=== PATIENT | male | born 1960 | race Hispanic/Latino ===

== ENCOUNTER 2018-06-17 09:11 | Inpatient (IN) | payer BC ==
[2018-06-17] VITALS (7 sets, daily range): BP systolic 152–185; BP diastolic 76–94
[~2018-06-17] VITALS: Ht 165.1 cm; Wt 83.0 kg
[2018-06-17] MEDS ORDERED: METOPROLOL TARTRATE INJ 1 MG/ML VIAL IV ONE (09:15)
[2018-06-17] MEDS ORDERED: ASPIRIN 325 MG TAB PO ONE (09:15)
[2018-06-17 09:59] LABS: BASOPHILS % 0.1 % (0.0-1.0); LYMPHOCYTES # (AUTO) 1.4 (1.0-3.2); LYMPHOCYTES % 15.6 % (18.0-39.1); MONOCYTES # (AUTO) 0.4 (0.2-0.8); MONOCYTES % 4.4 % (4.4-11.3); NEUTROPHILS % 79.3 % (38.7-80.0); PLATELET COUNT 210 x10e3/uL (140-360); RED CELL DISTRIBUTION WIDTH 14.7 % (11.7-14.4)
[2018-06-17 10:02] LABS: HEMATOCRIT 12.6 % (38.2-49.6); HEMOGLOBIN 3.9 g/dL (14.0-18.0)
[2018-06-17] MEDS ORDERED: SODIUM CHLORIDE 0.9% 250ML 250 ML IV ONE (10:15)
[2018-06-17 10:16] LABS: ALBUMIN 2.1 g/dL (3.5-5.0); ALBUMIN/GLOBULIN RATIO 0.8 (0.8-2.0); ANION GAP 15.3 mmol/L (8-16); CALCIUM 7.6 mg/dL (8.4-10.2); CREATININE, SERUM 4.34 mg/dL (0.72-1.25); POTASSIUM 4.3 mmol/L (3.5-5.1)
[2018-06-17 10:22] LABS: INR 1.28
[2018-06-17 10:23] LABS: PARTIAL THROMBOPLASTIN TIME 25.2 seconds (23.8-35.5)
--- NOTE | 2018-06-17 10:24 | Diagnostic Imaging Report ---
PROCEDURE: A single AP view of the chest. COMPARISON: None. INDICATIONS: CHEST PAIN, SHORTNESS OF BREATH FINDINGS: Lines/tubes: None. Lungs: The lungs are well inflated and clear. There is no evidence of pneumonia or pulmonary edema. Pleura: There is no pleural effusion or pneumothorax. Heart and mediastinum: The heart and the mediastinum are unremarkable. Bones: No acute bony abnormality. IMPRESSION: No acute cardiopulmonary disease. Dictated by: MANUEL DSOUZA M.D. on 06/17/2018 at 10:30 Electronically approved by: MANUEL DSOUZA M.D. on 06/17/2018 at 10:30
[2018-06-17 10:55] LABS: FERRITIN 30.53 ng/mL (21.81-274.66); THYROID STIMULATING HORMONE 3.903 uIU/mL (0.350-4.940)
[2018-06-17 11:01] LABS: FOLATE 3.8 ng/mL (7.0-15.4)
[2018-06-17] MEDS ORDERED: FUROSEMIDE INJ 10 MG/ML 4 ML VIAL IV ONE (11:30)
[2018-06-17] MEDS ORDERED: SODIUM CHLORIDE FLUSH 10 ML SYR INJ PRN (11:45)
[2018-06-17] MEDS ORDERED: METOPROLOL TARTRATE INJ 1 MG/ML VIAL IV PRN (12:30)
[2018-06-17 12:58] LABS: CLARITY,URINE CLEAR (CLEAR); COLOR,URINE YELLOW (YELLOW); LEUKOCYTE ESTERASE ,URINE NEGATIVE (NEGATIVE); NITRITE,URINE NEGATIVE (NEGATIVE); PROTEIN,URINE DIPSTICK 3+ (NEGATIVE)
[2018-06-17 12:59] LABS: BILIRUBIN,URINE NEGATIVE (NEGATIVE); KETONES,URINE NEGATIVE (NEGATIVE); URINE UROBILINOGEN 0.2 mg/dL (0.2 - 1)
[2018-06-17 13:06] LABS: AMORPHOUS SEDIMENT,URINE FEW (FEW); BACTERIA,URINE FEW /HPF; EPITHELIAL CELLS,URINE RARE /LPF; WBC,URINE (MAN) 0-5 /HPF (0-5)
[2018-06-17] MEDS ORDERED: DEXTROSE 50% SYRINGE 50 ML IV PRN (14:15)
[2018-06-17] MEDS: CLONIDINE HCL 0.1 MG TAB PO PRN ×2 (14:22→19:10)
[2018-06-17] MEDS: METOPROLOL TARTRATE 50 MG TAB PO SCH (15:23)
[2018-06-17] MEDS: INSULIN REGULAR, HUMAN 100 UNIT/1 ML 3ML VIAL SQ SCH ×2 (15:37→21:00)
[2018-06-17] MEDS: HYDRALAZINE HCL 20 MG/ML VIAL IV PRN (15:37)
--- NOTE | 2018-06-17 15:40 | History and Physical ---
Mr. Hernández is a 58-year-old man with history of diabetes, hypertension, hyperlipidemia, came to the emergency room complaining of 2 weeks' history of chest pain, shortness of breath, palpitations, and feeling very tired. While in emergency, he was found to have renal failure and he was really anemic, so patient was admitted to the hospital. PAST MEDICAL HISTORY: Diabetes, hypertension, hyperlipidemia. SOCIAL HISTORY: He does not smoke and he does not drink. SURGICAL HISTORY: Had right knee surgery. ALLERGIES: NO KNOWN DRUG ALLERGIES. PHYSICAL EXAMINATION GENERAL: Today he is awake and alert. VITAL SIGNS: Temperature is 98.4, blood pressure is 188/97. HEART: Regular rate, 80 per minute. LUNGS: Clear to auscultation. ABDOMEN: Distended and soft. EXTREMITIES: Lower extremities no edema. BLOOD WORK: White count 8.77, hemoglobin 3.9, hematocrit 12.6, MCV is normal. Potassium is 4.3, creatinine is 4.34, glucose is 128. CK-MB is 14, CK 310, troponin is negative. TSH is normal. Urine has 6-10 cells. Chest x-ray shows no acute cardiopulmonary disease. ASSESSMENTS 1. Chest pain and shortness of breath, rule out coronary artery disease. 2. Acute renal failure. 3. Severe anemia. 4. Uncontrolled hypertension. 5. Diabetes type 2. 6. Paroxysmal atrial fibrillation. PLAN: At the present time is to admit the patient to the hospital, cardiology consult with Dr. Edwards, nephrology consult. He is going to be on ADA diet, sliding scale with insulin, clonidine p.r.n. for blood pressure. He received already 1 unit of blood. He is going to receive another unit of blood. We want to get a Hemoccult. All this was discussed with patient. All questions were answered to satisfaction. We will reconcile his home medications when we have them available. Job#: [id number] RADHA
[2018-06-17] MEDS ORDERED: SODIUM CHLORIDE 0.9% 1000ML 1,000 ML IV SCH (16:00)
--- NOTE | 2018-06-17 16:13 | Consultation ---
DATE OF CONSULTATION: NO DICTATION, LENGTH 0:1 Job#: [id number] RI
[2018-06-17] MEDS ORDERED: SODIUM CHLORIDE 0.9% 250ML 250 ML ONE (16:27)
[2018-06-17 16:40] LABS: CREATININE,URINE RANDOM 53.59 mg/dL (63-166)
[2018-06-17 16:41] LABS: TOTAL PROTEIN, URINE 206.2 mg/dL (1-14)
--- NOTE | 2018-06-17 17:33 | Consultation ---
DATE OF CONSULTATION: June 17, 2018 REASON FOR CONSULTATION: ROSY. HPI: Mr. Hernández is a 58-year-old man with a history of hypertension and diabetes, who has been admitted to [facility] due to shortness of breath with exertion, weakness and fatigue that has progressively been worsening for the past few days. He states he has never been to see a mud analysis supervisor, and has never been told he has kidney disease. As per our records, the last time he had a creatinine check was February of last year when he was admitted here for a hernia at which point his creatinine was 1.9 mg/dL. Upon presentation and today, he is found to have a hemoglobin of 3.9 mg/dL and a BUN of 99 with a creatinine of 4.3 and bicarb of 13. The last time he had labs was over a year ago when he was admitted here. Since then, he has not seen a doctor. He is not sure of his diabetes or his blood pressure has been well controlled. He states that after getting the blood, his shortness of breath and chest discomfort have improved considerably. He denies blood in his urine, blood in his stool, coughing up blood, or vomiting blood. REVIEW OF SYSTEMS: He denies fevers, chills, cough, nausea, vomiting, diarrhea, hematuria, hemoptysis, dysuria, hematochezia, hematemesis. PAST MEDICAL HISTORY: Diabetes, hypertension. PAST SURGICAL HISTORY: None. FAMILY HISTORY: No renal disease. SOCIAL HISTORY: No alcohol, tobacco or illicit drug use. ALLERGIES: NO KNOWN DRUG ALLERGIES. PHYSICAL EXAMINATION GENERAL: He is lying comfortably in bed. No acute distress. VITAL SIGNS: Temperature 98.4, heart rate 88, respiratory rate 18, blood pressure 188/97, and O2 sat is 100%. HEENT: NCAT. EOMI. NECK: Supple. JVP not appreciated. LUNGS: Clear to auscultation bilaterally. No rhonchi or rales. HEART: Regular rate and rhythm. S1 and S2 normal. ABDOMEN: Soft, nontender and nondistended. EXTREMITIES: No edema. Intact pulses. SKIN: No rash. No lesions. NEURO: Cranial nerves II-XII are grossly intact. MUSCULOSKELETAL: Normal to inspection. LABS: Reviewed in the electronic medical record. Significant for a BUN of 99, creatinine 4.3, bicarb 13. Urinalysis shows 2+ leukocyte esterase, 6-10 rbcs and greater than 50 wbcs with many bacteria, and 3+ protein. Hemoglobin 3.9 mg/dL with a hematocrit of 12.6 mg/dL. IMAGING: Chest x-ray performed on presentation showed no acute cardiopulmonary disease. ASSESSMENT AND PLAN 1. Anemia: Unsure if this is anemia of chronic kidney disease or acute blood loss anemia: I suspect this is more in the setting of chronic kidney disease since he presented essentially asymptomatic with a hemoglobin of 3.9 mg/dL. Has been adequately repleted, and now hemoglobin is 11. Iron saturation is 10% with a ferritin of 30. 2. Nonoliguric acute kidney injury on chronic kidney disease: Suspect he has baseline chronic kidney disease since creatinine is 1.9 from February of last year. However, still a significant jump within a year. Will check a renal ultrasound and a urine culture. Since the urinalysis showed 3+ protein, will check a urine protein to creatinine ratio as well. Suspect a component of ischemic acute tubular necrosis in the setting of such low blood counts. Will start on intravenous fluids. Has been repleted appropriately with blood as well. 3. Metabolic acidosis: Will start sodium bicarb. 4. Hyperphosphatemia: Will check a phos level with a.m. labs. Thank you for allowing me to participate in the care of Mr. Hernández. I will continue to follow closely. Job#: [id number] SC
[2018-06-17] MEDS: SODIUM BICARBONATE 650 MG TAB PO SCH (21:15)
[2018-06-17 21:53] LABS: CREATINE KINASE MB 11.2 ng/mL (0-5.0)
[2018-06-18] VITALS (7 sets, daily range): BP systolic 153–169; BP diastolic 71–81
[2018-06-18] MEDS: MORPHINE SULFATE 2 MG/ML SYR IV PRN ×2 (02:14→21:38)
[2018-06-18 05:22] LABS: BASOPHILS % 0.3 % (0.0-1.0); EOSINOPHILS # (AUTO) 0.1 (0.0-0.4); EOSINOPHILS % 1.8 % (0.0-6.0); LYMPHOCYTES # (AUTO) 2.3 (1.0-3.2); LYMPHOCYTES % 29.2 % (18.0-39.1); MEAN CORPUSCULAR HEMOGLOBIN 26.3 pg (28-32); MEAN CORPUSCULAR HGB CONC 32.7 g/dL (31-35); MEAN CORPUSCULAR VOLUME 80.5 fL (81-99); MONOCYTES # (AUTO) 0.6 (0.2-0.8); NEUTROPHILS # (AUTO) 4.6 (2.1-6.9); PLATELET COUNT 195 x10e3/uL (140-360); RED BLOOD COUNT 2.05 x10e6/uL (4.3-5.7); RED CELL DISTRIBUTION WIDTH 15.2 % (11.7-14.4)
[2018-06-18 05:40] LABS: ALBUMIN/GLOBULIN RATIO 0.8 (0.8-2.0); ANION GAP 14.1 mmol/L (8-16); CALCIUM 7.7 mg/dL (8.4-10.2); CHOL/HDL RATIO 6.2 (3.9-4.7); CREATININE, SERUM 4.47 mg/dL (0.72-1.25); POTASSIUM 4.1 mmol/L (3.5-5.1)
[2018-06-18 05:46] LABS: CREATINE KINASE MB 9.3 ng/mL (0-5.0)
[2018-06-18 05:54] LABS: HEMATOCRIT 16.5 % (38.2-49.6)
[2018-06-18 05:55] LABS: HEMOGLOBIN 5.4 g/dL (14.0-18.0)
[2018-06-18 06:10] LABS: MAGNESIUM 1.3 MG/DL (1.3-2.1); PHOSPHORUS 4.2 MG/DL (2.3-4.7)
[2018-06-18] MEDS ORDERED: SODIUM CHLORIDE 0.9% 250ML 250 ML IV ONE (07:00)
[2018-06-18] MEDS: CLONIDINE HCL 0.1 MG TAB PO PRN (08:06)
[2018-06-18] MEDS: SODIUM BICARBONATE 650 MG TAB PO SCH ×3 (08:06→21:18)
[2018-06-18] MEDS: METOPROLOL TARTRATE 50 MG TAB PO SCH ×2 (08:07→16:29)
--- NOTE | 2018-06-18 08:09 | Progress Note ---
DATE: June 18, 2018 Mr. Hernández is a 58-year-old man with a history of diabetes, hypertension, hyperlipidemia, who came to the emergency room complaining of a 2-week history of chest pain, shortness of breath, palpitations, and feeling tired. Apparently, last year his creatinine was 1.9. When he came to the emergency room, creatinine was like 4.3. The patient was admitted to the hospital for further workup. He was found also to be very anemic. He received 2 units of blood. He is still very anemic. PHYSICAL EXAMINATION GENERAL: He is awake and alert. VITALS: Temperature is 97.2, blood pressure 153/73. HEART: Irregularly irregular. LUNGS: Clear to auscultation. ABDOMEN: Soft. BLOOD WORK: Potassium 4.1, creatinine is 4.47, glucose 106. White count is 7.83, hemoglobin 5.4, hematocrit 16.5, and platelets 195,000. TSH was normal. Chest x-ray with no acute findings. We are awaiting for the kidney ultrasound. ASSESSMENT AND PLAN 1. Chest pain and shortness of breath probably due to severe anemia, renal failure. Rule out coronary artery disease. 2. Pkwhq-ez-tggicri renal failure. 3. Severe anemia probably due to renal failure. 4. Uncontrolled hypertension. 5. Diabetes, type 2. 6. Atrial fibrillation. 7. Metabolic acidosis. 8. Hyperphosphatemia. PLAN: At this time, he is on IV fluids. We are waiting for the kidney ultrasound. He was started on sodium bicarb. He is on metoprolol and clonidine for high blood pressure. He is on an ADA diet and sliding scale with insulin. We are going to continue to monitor creatinine, as well as hemoglobin and hematocrit. Cardiology and nephrology are following the patient with me. All of this was discussed with the patient. All questions were answered to satisfaction. Job#: [id number] BRITTNEE
[2018-06-18] MEDS: INSULIN REGULAR, HUMAN 100 UNIT/1 ML 3ML VIAL SQ SCH ×4 (08:12→21:18)
[2018-06-18] MEDS: HYDRALAZINE HCL 20 MG/ML VIAL IV PRN (13:09)
--- NOTE | 2018-06-18 15:28 | Diagnostic Imaging Report ---
PROCEDURE:US RETROPERITONEAL ( KIDNEY ). COMPARISON:None. INDICATIONS:ROSY TECHNIQUE: Maldonado-scale and color sonographic images of the bilateral kidneys and bladder where obtained in transverse and longitudinal planes. FINDINGS: RIGHT KIDNEY: 8.1 cm, cortex 1.4 cm Cysts: None Solid masses: None Stones: None Hydronephrosis: None Echogenicity: Increased LEFT KIDNEY: 10.7 cm, cortex 1.7 cm Cysts: None Solid masses: None Stones: None Hydronephrosis: None Echogenicity: Increased Bladder: Unremarkable Prostate: The prostate gland is normal in size, measuring 2.7 x 2.2 x 2.5 cm (14.8 mL). CONCLUSION: Increased renal parenchymal echogenicity, consistent with renal parenchymal dysfunction. No hydronephrosis, stones, or solid renal mass. Dictated by: Darrius Melendrez M.D. on 06/18/2018 at 15:34 Electronically approved by: Darrius Melendrez M.D. on 06/18/2018 at 15:34
--- NOTE | 2018-06-18 15:57 | Progress Note ---
DATE: June 18, 2018 REASON FOR CONSULTATION: ROSY on CKD. HPI: Mr. Hernández is a 58-year-old man with a history of diabetes and hypertension, admitted with acute blood loss anemia and metabolic acidosis. OBJECTIVE: No acute events overnight. SUBJECTIVE VITAL SIGNS: Temperature 96.6, heart rate 61, respiratory rate 20, blood pressure 169/81. LUNGS: Clear to auscultation bilaterally. No wheezing or rales. HEART: Regular rhythm. EXTREMITIES: No edema. LABS: Reviewed on electronic medical record. Significant for a bicarb of 13 and creatinine of 4.4. ASSESSMENT AND PLAN 1. Nonoliguric acute kidney injury versus chronic kidney disease stage 5. Electrolytes and volume status reviewed, is acidotic and just started on bicarb yesterday. No urgent indication for dialysis unless acidosis does not respond to oral medication. Will continue to monitor closely. 2. Ultrasound pending. 3. Metabolic acidosis. Will increase sodium bicarbonate. 4. Acute blood loss anemia. Another 2 units of blood given today. 5. Question whether GI needs to be involved considering he continues to drop his hemoglobin despite replacement. Will order a stool occult blood. Job#: [id number] JELLY
[2018-06-18] MEDS ORDERED: NIFEDIPINE CR 30 MG TAB PO SCH (21:00)
[2018-06-19] VITALS (8 sets, daily range): BP systolic 124–167; BP diastolic 71–100
[2018-06-19 04:36] LABS: BASOPHILS % 0.3 % (0.0-1.0); EOSINOPHILS # (AUTO) 0.3 (0.0-0.4); EOSINOPHILS % 3.9 % (0.0-6.0); HEMATOCRIT 22.1 % (38.2-49.6); HEMOGLOBIN 7.2 g/dL (14.0-18.0); LYMPHOCYTES # (AUTO) 2.1 (1.0-3.2); LYMPHOCYTES % 28.2 % (18.0-39.1); MEAN CORPUSCULAR HEMOGLOBIN 26.8 pg (28-32); MEAN CORPUSCULAR HGB CONC 32.6 g/dL (31-35); MEAN CORPUSCULAR VOLUME 82.2 fL (81-99); MONOCYTES # (AUTO) 0.7 (0.2-0.8); MONOCYTES % 8.7 % (4.4-11.3); NEUTROPHILS # (AUTO) 4.3 (2.1-6.9); NEUTROPHILS % 57.2 % (38.7-80.0); PLATELET COUNT 201 x10e3/uL (140-360); RED BLOOD COUNT 2.69 x10e6/uL (4.3-5.7); RED CELL DISTRIBUTION WIDTH 15.6 % (11.7-14.4)
[2018-06-19 04:59] LABS: ANION GAP 12.3 mmol/L (8-16); CALCIUM 7.8 mg/dL (8.4-10.2); CREATININE, SERUM 4.34 mg/dL (0.72-1.25); MAGNESIUM 1.4 MG/DL (1.3-2.1); PHOSPHORUS 4.4 MG/DL (2.3-4.7); POTASSIUM 4.3 mmol/L (3.5-5.1)
[2018-06-19] MEDS: INSULIN REGULAR, HUMAN 100 UNIT/1 ML 3ML VIAL SQ SCH ×4 (07:30→20:32)
--- NOTE | 2018-06-19 08:18 | Progress Note ---
DATE: June 19, 2018 Mr. Hernández is a 58-year-old man with a history of diabetes, hypertension, hyperlipidemia, who came to the emergency room complaining of 2-week history of feeling tired, chest pain and shortness of breath. Last year his creatinine was 1.9. When he came here, it was 4.3. He also was found to be very anemic and received already 4 units of blood. PHYSICAL EXAMINATION GENERAL: Today, he is awake and alert. He is feeling good. VITALS: Temperature is 96.4, blood pressure 124/71. HEART: Regular rate. LUNGS: Poor inspiratory effort. ABDOMEN: Soft. BLOOD WORK: Potassium 4.3, creatinine 4.34, glucose is 97. White count 7.45, hemoglobin 7.2, hematocrit 22.1. Chest x-ray was normal. Had an ultrasound done yesterday that shows increased renal parenchymal echogenicity consistent with renal parenchymal dysfunction. ASSESSMENT 1. Chest pain and shortness of breath probably due to anemia. 2. Paroxysmal atrial fibrillation. 3. Ndsiw-db-[id number] renal failure. 4. Severe anemia. 5. Uncontrolled hypertension. 6. Diabetes, type 2. 7. Metabolic acidosis. 8. Hyperphosphatemia. PLAN: At the present time, continue sodium bicarbonate, ADA diet and sliding scale with insulin. Transfuse as needed. The pig breeder seems to think that this anemia may also be due to blood loss. We are going to get a GI consult with Dr. Lara. Continue to monitor hemoglobin and creatinine. Continue hypertension medications. All of this was discussed with the patient. All questions were answered to satisfaction. Job#: [id number] BRITTNEE
[2018-06-19] MEDS: SODIUM BICARBONATE 650 MG TAB PO SCH ×3 (08:40→20:31)
[2018-06-19] MEDS: METOPROLOL TARTRATE 50 MG TAB PO SCH (08:40)
[2018-06-19] MEDS: EPOETIN ALFA 10000 UNIT/ML VIAL SC SCH (15:31)
[2018-06-19] MEDS ORDERED: SENNA-S TABLET PO SCH (16:30)
[2018-06-19] MEDS ORDERED: METOPROLOL TARTRATE 50 MG TAB PO SCH (17:00)
[2018-06-19] MEDS ORDERED: METOPROLOL TARTRATE 25 MG TAB PO SCH (17:00)
--- NOTE | 2018-06-19 17:26 | Progress Note ---
DATE: June 19, 2018 INTERNAL MEDICINE CONSULTATION REASON FOR CONSULTATION: CKD stage 5. SUBJECTIVE: Patient is feeling considerably better although complaining of constipation today. OBJECTIVE GENERAL: Lying comfortably in bed, no acute distress. VITAL SIGNS: Temperature 96.8, heart rate 52, respiratory rate 20, blood pressure 141/72. LUNGS: Clear to auscultation bilaterally. No wheezing, no rales. HEART: Regular rhythm. EXTREMITIES: No edema. LABS: Reviewed in the electronic medical record. Significant for a creatinine of 4.3, BUN of 90, bicarb of 16. ASSESSMENT AND PLAN 1. Nonoliguric acute kidney injury on chronic kidney disease versus chronic kidney disease stage 5. His right kidney is 8 cm in size, and left kidney is 10 cm. I suspect this is all chronic renal disease and he is heading towards dialysis soon. This was explained to the patient. However, currently he is asymptomatic and does not require emergent dialysis. Acidosis will be controlled with oral medication. 2. Metabolic acidosis. Continue sodium bicarb 1950 mg t.i.d. Bicarb level improving. 3. Anemia of chronic kidney disease. Continue Epogen. 4. Accelerated hypertension. Starting to develop bradycardia. Heart rates in the 50s on metoprolol and nifedipine. Has not been started on the metoprolol yet, and heart rate is already in the 50s. Will hold the metoprolol and increase the nifedipine. INCOMPLETE REPORT Job#: [id number] EV
[2018-06-19] MEDS: METOPROLOL TARTRATE 25 MG TAB PO SCH (17:27)
[2018-06-19] MEDS: NIFEDIPINE CR 30 MG TAB PO SCH (20:30)
[2018-06-19] MEDS: DOCUSATE SODIUM 100 MG CAP PO SCH (20:59)
[2018-06-19] MEDS: POLYETHYLENE GLYCOL 3350 17 GM PACK PO SCH (21:00)
--- NOTE | 2018-06-19 21:32 | Consultation ---
DATE OF CONSULTATION: June 19, 2018 GI CONSULT NOTE CONSULTING PHYSICIAN: Nancy Blackman MD REASON FOR CONSULT: Anemia, unspecified. HISTORY OF PRESENTING ILLNESS: A 58-year-old male who presented in the emergency room day before yesterday with profound weakness, shortness of breath on minimal exertion, palpitations, and off and on chest pain. No associated fever or chills. Blood work revealed profound anemia with hemoglobin of 3.9, MCV 84. He was also found to have renal failure with creatinine of 4.34. Baseline creatinine is not known. Patient got admitted with working diagnosis of asymptomatic anemia with acute renal failure. He has received 4 units of packed red blood cells with which hemoglobin has come up to 7.2. Iron profile showed a ferritin of 30.53, iron saturation low to 10, TIBC 307 (normal). Stool has not been collected yet. He reports no constipation at home, however, he has not had any bowel movement for 2 days. Reports no history of dark stool. Never had any episode of GI bleeding. No prior history of any peptic ulcer disease. No chronic liver disorder. Never had any upper endoscopy or colonoscopy. He is not on any blood thinner. Does not take any NSAIDs. GI is being consulted for further evaluation and recommendation of acute anemia. REVIEW OF SYSTEMS: Twelve-point system reviewed, symptomatology is limited to GI system. PAST MEDICAL HISTORY: Diabetes, hypertension, hyperlipidemia. PAST SURGICAL HISTORY: Right knee surgery. SOCIAL HISTORY: No smoking, alcohol, or any illicit drug use. FAMILY HISTORY: Negative for any GI or APPELLATE COURT CLERK malignancies. ALLERGIES: NO KNOWN DRUG ALLERGIES. HOME MEDICATIONS: None. INPATIENT MEDICATION LIST: Reviewed JAN. PHYSICAL EXAMINATION: VITAL SIGNS: Temperature 97.2, pulse 60, respiration 20, blood pressure 154/77, oxygen saturation 98% on room air. GENERAL: Not in any acute distress. HEENT: Oral mucosa is moist. Anicteric sclerae. CVS: S1 and S2 regular with a 2/6 flow murmur at the apex. LUNGS: Bilaterally grossly clear. ABDOMEN: Obese, protuberant belly, nondistended, nontender. No palpable mass or hernia. Positive bowel sounds. EXTREMITIES: Warm. Trace bilateral leg edema. LABS: Sodium 140, potassium 4.1, chloride 117, bicarb 13, BUN 100, creatinine 4.34 (same as on admission). AST 12, ALT 16, alkaline phosphatase 48, total bilirubin 0.2. WBC 8.77; hemoglobin 3.9, this has climbed to 7.2; hematocrit 12.6; platelet count 210,000. Urinalysis revealed 1+ blood, leukocyte esterase negative, RBCs 6 to 10, WBCs 0 to 5, nitrite negative. Renal ultrasound, increased renal parenchymal echogenicity consistent with renal parenchymal dysfunction. No hydronephrosis, stones, or solid renal mass. IMPRESSION: 1. Symptomatic normocytic anemia. 2. Acute renal failure. PLAN: From GI standpoint, I do not suspect any GI source of blood loss at this time. Will have to check the stool to ensure that if there is any occult blood present. Peripheral cell count is not consistent with microcytosis or hypochromia. Iron profile is also not suggestive of iron deficiency. However, patient can have a mixed picture. Will put him on bowel regimen for constipation. Check stool for occult blood. At least will keep him n.p.o. past midnight. EGD in the morning by my associate either Dr. Lara or Dr. Burkett. Recommend hematology consult to rule out multiple myeloma or any myelodysplastic syndrome. Patient is already being followed by nephrology service. I thank Dr. Blackman for allowing me to participate in the care of this patient. Job#: [id number] DR TOVAR
[2018-06-19] MEDS: MORPHINE SULFATE 2 MG/ML SYR IV PRN (23:47)
[2018-06-20] VITALS (8 sets, daily range): BP systolic 124–167; BP diastolic 63–80
[2018-06-20 05:06] LABS: BASOPHILS % 0.4 % (0.0-1.0); EOSINOPHILS # (AUTO) 0.3 (0.0-0.4); EOSINOPHILS % 4.1 % (0.0-6.0); HEMATOCRIT 22.2 % (38.2-49.6); HEMOGLOBIN 7.2 g/dL (14.0-18.0); LYMPHOCYTES # (AUTO) 2.2 (1.0-3.2); LYMPHOCYTES % 30.1 % (18.0-39.1); MEAN CORPUSCULAR HEMOGLOBIN 26.9 pg (28-32); MEAN CORPUSCULAR HGB CONC 32.4 g/dL (31-35); MEAN CORPUSCULAR VOLUME 82.8 fL (81-99); MONOCYTES # (AUTO) 0.8 (0.2-0.8); MONOCYTES % 10.5 % (4.4-11.3); NEUTROPHILS # (AUTO) 3.9 (2.1-6.9); NEUTROPHILS % 53.4 % (38.7-80.0); PLATELET COUNT 221 x10e3/uL (140-360); RED BLOOD COUNT 2.68 x10e6/uL (4.3-5.7); RED CELL DISTRIBUTION WIDTH 15.7 % (11.7-14.4)
[2018-06-20 05:22] LABS: ANION GAP 12.8 mmol/L (8-16); CALCIUM 7.7 mg/dL (8.4-10.2); CREATININE, SERUM 3.82 mg/dL (0.72-1.25); MAGNESIUM 1.6 MG/DL (1.3-2.1); PHOSPHORUS 5.4 MG/DL (2.3-4.7); POTASSIUM 4.8 mmol/L (3.5-5.1)
[2018-06-20] MEDS: INSULIN REGULAR, HUMAN 100 UNIT/1 ML 3ML VIAL SQ SCH ×4 (07:30→21:00)
[2018-06-20] MEDS: METOPROLOL TARTRATE 25 MG TAB PO SCH ×2 (09:00→17:14)
[2018-06-20] MEDS: DOCUSATE SODIUM 100 MG CAP PO SCH ×2 (09:00→17:00)
[2018-06-20] MEDS: SODIUM BICARBONATE 650 MG TAB PO SCH ×3 (09:00→21:23)
[2018-06-20] MEDS: POLYETHYLENE GLYCOL 3350 17 GM PACK PO SCH (09:00)
--- NOTE | 2018-06-20 09:27 | Progress Note ---
DATE: June 20, 2018 Mr. Hernández is a 58-year-old man with history of diabetes, hypertension, hyperlipidemia, who came to the emergency room because he was feeling tired. He had chest pain and shortness of breath. He was found to be very anemic as well as he had an elevated creatinine. PHYSICAL EXAMINATION GENERAL: Today, he is awake and alert. VITALS: Temperature is 96.2, blood pressure 127/63. HEART: Regular rate. LUNGS: Clear to auscultation. ABDOMEN: Soft. BLOOD WORK: Potassium 4.8, creatinine 3.82, and glucose 105. White count 7.31, hemoglobin 7.2, and hematocrit 22.2. ASSESSMENT 1. Chest pain and shortness of breath, probably due to anemia. 2. Paroxysmal atrial fibrillation. 3. Ubwtw-ca-ldcxfzw renal failure. 4. Severe anemia. 5. Uncontrolled hypertension. 6. Diabetes type 2. 7. Metabolic acidosis. 8. Hyperphosphatemia. PLAN: At the present time, to continue ADA diet and sliding scale with insulin. He was started on sodium bicarbonate. He was seen by GI and he is going to go for an EGD today. Apparently, stool guaiac came back also positive for blood loss. Spoke with Dr. Lundy yesterday that suggested the patient is so anemic and the renal failure that we need to rule out any type of malignancy like multiple myeloma; so, we consulted Dr. Batista for this. Continue all medications. All this was discussed with the patient. All questions were answered to satisfaction. Job#: [id number]
[2018-06-20] MEDS: LINEZOLID 600 MG/D5W 300ML 300 ML IV SCH (12:49)
--- NOTE | 2018-06-20 13:09 | Consultation ---
DATE OF CONSULTATION: ADDENDUM TO CONSULTATION I was asked to see him because he had redness and swelling of his right leg. The patient is telling me he had fallen on his right leg a week ago. The patient had trauma with redness and swelling. Now there are redness and swelling. There is induration. IMPRESSION: Trauma to the leg with redness and swelling, concern about infection. Will get an x-ray. Because he has chronic kidney disease and grew MRSA, will put him on Zyvox for now. Will reassess after the x-ray. Job#: [id number]
--- NOTE | 2018-06-20 13:22 | Consultation ---
DATE OF CONSULTATION: INFECTIOUS DISEASE CONSULTATION REASON FOR CONSULTATION: To rule out infection. HISTORY OF PRESENT ILLNESS: This patient, who is a pleasant 58-year-old male, history of diabetes mellitus, hypertension, hyperlipidemia, comes into the emergency room with chest pain, shortness of breath, palpitations, feeling really bad. The patient comes in. He was admitted on June 17, 2018. The patient has history of diabetes, hypertension and hyperlipidemia, comes in, was found to have acute renal failure, severe anemia, possible atrial fibrillation. He was seen by Renal. He was seen by Cardiology. The patient was found to have metabolic acidosis. He was also seen by GI. His creatinine on admission was 4.3. Hemoglobin was 7.2, and there was concern if he has multiple myeloma. Patient had a wound on his leg, and he is growing Staphylococcus aureus which was MSSA but was resistant to clindamycin and resistant to erythromycin. Patient is currently on morphine, nifedipine and insulin. REVIEW OF SYSTEMS: HEENT: Negative. PULMONARY: Negative. CARDIAC: Negative. : Negative. SKIN: There is no other rash. PHYSICAL EXAMINATION: GENERAL: He is currently alert, oriented. Does not seem to be in acute distress. VITALS: Stable. Currently afebrile. HEENT: Normocephalic, does not appear icteric. NECK: Supple. CHEST: Clear bilaterally. HEART: S1, S2. No S3 or S4. No murmur. ABDOMEN: Soft. Bowel sounds present. No tenderness. EXTREMITIES: No edema. SKIN: No rash. JOINTS: No erythema or edema. LAB: White count 7.31, hemoglobin 7.2, platelet 231. Creatinine 3.82. IMPRESSION: 1. Chest pain. 2. Anemia. 3. Chronic kidney disease, probably acute kidney injury. 4. Methicillin-resistant Staphylococcus aureus on the culture from wound. I would recommend to continue with local care. Job#: [id number] EV
[2018-06-20] MEDS ORDERED: MIDAZOLAM HCL 2 MG/2 ML VIAL ONE (14:26)
[2018-06-20] MEDS ORDERED: KETAMINE HCL INJ 50 MG/ML 10 ML VIAL ONE (14:26)
[2018-06-20] MEDS ORDERED: FENTANYL CITRATE/PF 100MCG/2 ML INJ ONE (14:26)
[2018-06-20] MEDS ORDERED: EPINEPHRINE HCL INJ 1 MG/ML AMP ONE (15:56)
[2018-06-20] MEDS: PANTOPRAZOLE 40 MG 10ML VIAL IV SCH (17:12)
[2018-06-20] MEDS: SUCRALFATE 1 GM TAB PO SCH ×2 (17:12→21:23)
[2018-06-20] MEDS ORDERED: PROPOFOL IV EMULSION 10 MG/ML 20 ML VIAL ONE (17:35)
[2018-06-20] MEDS ORDERED: DIATRIZOATE MEGL/DIATRIZOA SOD 30 ML BTL PO ONE (17:53)
--- NOTE | 2018-06-20 18:15 | Progress Note ---
DATE: June 20, 2018 REASON FOR CONSULTATION: Chronic kidney disease stage 5. SUBJECTIVE: Underwent EGD today and found to have a gastric ulcer. OBJECTIVE GENERAL: Lying comfortably in bed, no acute distress. VITAL SIGNS: Temperature 96.7, heart rate 52, respiratory rate 19, blood pressure 153/72. O2 sat 98% on room air. LUNGS: Clear to auscultation bilaterally. No wheezing, no rales. HEART: Regular rhythm. EXTREMITIES: No edema. LABS: Reviewed in the electronic medical record. Significant for a BUN of 84, creatinine 3.8. Bicarb of 19. ASSESSMENT AND PLAN 1. Chronic kidney disease stage 5. Electrolytes and volume status reviewed. No urgent indication to start on dialysis just yet. 2. Metabolic acidosis on sodium bicarbonate. 3. Hypertension. Continue nifedipine and metoprolol. 4. Gastric ulcer. Would be judicious with Carafate as it can cause aluminium toxicity in end-stage renal disease. Will monitor closely. Job#: [id number] GUY
[2018-06-20 18:22] LABS: HIV 1&2 AB SCREEN NON-REACTIVE (NONREACTIVE)
--- NOTE | 2018-06-20 18:45 | Consultation ---
DATE OF CONSULTATION: June 20, 2018 CONSULTATION TO: Nancy Blackman MD Mr. Hernández is a 58-year-old male who presented with weakness, shortness of breath, and dizziness. Subsequently, he was found to have a hemoglobin of 3.9 grams with normal indices. He was seen by com writer. Stool for occult blood was done which was reported positive. The patient subsequently was transfused to 7.2 grams. SOCIAL HISTORY: Noncontributory. FAMILY HISTORY: Noncontributory. ALLERGIES: REPORTED NONE. MEDICATIONS: At this time consist of: 1. Linezolid. 2. Clonidine. 3. Docusate. 4. Erythropoietin. 5. Hydralazine. 6. Metoprolol. 7. Nifedipine. 8. Protonix. 9. MiraLAX. 10. Regular insulin. 11. Senna. 12. Sodium bicarbonate. 13. Carafate. REVIEW OF SYSTEMS HEENT: Normal. CARDIAC: Hypertension, hyperlipidemia. RESPIRATORY: Normal. GI: Stool for occult blood positive. : Chronic renal failure. MUSCULOSKELETAL: Essentially normal. NEUROENDOCRINE: History of diabetes mellitus. PHYSICAL EXAMINATION GENERAL: Moderately built male, very anemic. Underlying left axillary adenopathy, 2 cm. HEART: Within normal limits. LUNGS: Clear. ABDOMEN: Obese. There is no hepatosplenomegaly. RECTAL: Exam deferred. CENTRAL NERVOUS SYSTEM: Essentially normal. EXTREMITIES: Essentially normal. LABORATORY DATA: 06/17/2018: Hemoglobin of 3.9, hematocrit 12.6, white count 8700, platelets 210,000, MCV 84, MCHC 31, RDW 14.7, neutrophils predominate 79.3%, lymphocytes 15.6%, 4.4% monocytes. The patient has been transfused to 7.2 grams today. Chemistry shows a sodium of 140, potassium 4.3, chloride 116, CO2 13 , BUN 99, creatinine 4.34, glucose 128, calcium low at 7.6. Bilirubin 0.2, SGOT 14, SGPT 17, alkaline phosphatase 47. CK is high at 310, CK-MB is reported high at 14. Total protein is very low at 4.8. Albumin low at 2.1. Globulins 2.7. Folic acid reported at 3.8. TSH 3.9. B12 is reported at 219. Microbiology from the right foot reveals Staph aureus. IMAGING: Renal ultrasound shows renal disease. Chest x-ray reported as essentially normal. IMPRESSION 1. Anemia of chronic disease. 2. Hypertension. 3. Diabetes mellitus, insulin dependent. 4. Hyperlipidemia. 5. Chronic renal failure. 6. Hypoproteinemia. 7. Hypoalbuminemia. 8. Hypocalcemia. 9. Stool for occult blood positive. 10. Wound culture, right leg, Staphylococcus aureus. 11. High creatine kinase, rule out rhabdomyolysis. 12. Bone marrow defect with anemia of chronic disease. 13. Left axillary lymph node, possible lymphoma. 14. Folic acid deficiency. 15. Low normal B12. PLAN, COMMENTS AND SUGGESTIONS: TSH is normal. Four causes of anemia are chronic disease, chronic renal failure, hypothyroidism, rheumatoid arthritis and an underlying malignancy. Underlying malignancy is very possible. I will suggest a left axillary lymph node biopsy and a bone marrow biopsy. EGD and colonoscopy become a must, as the patient has stool for occult blood positivity. CAT scan of the abdomen and pelvis as well as CAT scan of the chest without contrast as the patient has lymphadenopathy. Procrit and iron. HIV testing. Folic acid and B12 supplements. Job#: [id number] cc:MD CHRISTAL BELLO MD
[2018-06-20] MEDS ORDERED: LIDOCAINE HCL 10 MG/ML VIAL INJ ONE (19:45)
--- NOTE | 2018-06-20 20:08 | Diagnostic Imaging Report ---
RIGHT TIBIA/FIBULA X-RAY - 3 VIEWS HISTORY: \S\trauma \S\[id number] \S\1949 COMPARISON: None available. FINDINGS: Bones: Linear lucency within the proximal lateral tibial plateau. Additionally there is a linear lucency with surrounding sclerosis in the proximal tibial diaphysis. Osseous alignment is within normal limits. Joints: Advanced tricompartmental degenerative changes with associated diffuse osteophytosis and chondroid loose bodies in the posterior knee soft tissues. Chondrocalcinosis of the medial compartment. Soft tissues: The soft tissues appear unremarkable. IMPRESSION: Linear lucency of the proximal lateral right tibial plateau due to nondisplaced fracture, which may be acute/subacute on top of the chronic fracture as noted in the proximal tibial diaphysis. Recommend orthopedic consultation. Advanced tricompartmental degenerative changes of the right knee. Signed by: Dr. Sarah Hanson M.D. on 06/20/2018 8:04 PM
--- NOTE | 2018-06-20 20:59 | Diagnostic Imaging Report ---
EXAM: CT Chest, Abdomen and Pelvis WITHOUT contrast INDICATION: \S\anemia \[id number] \S\194 COMPARISON: Chest radiograph 02/27/2017 TECHNIQUE: Chest, abdomen and pelvis were scanned utilizing a multidetector helical scanner from the lung apex to the pubic symphysis without administration of IV contrast. Coronal and sagittal reformations were obtained. Routine protocol was performed. IV CONTRAST: None. ORAL CONTRAST: Gastrografin RADIATION DOSE: Total DLP: 822.4 mGy*cm Estimated effective dose: (DLP x 0.015 x size factor) mSv COMPLICATIONS: None FINDINGS: LINES and TUBES: None. LUNGS AND AIRWAYS: The lungs are unremarkable. Airways are normal. PLEURA: The pleural spaces are clear. HEART AND MEDIASTINUM: The thyroid gland is normal. Few prominent at the 1.2 cm and 7 of them partially calcified mediastinal lymph nodes, for example in the right lower paratracheal region on series 2, image 18. Additional few small calcified lymph nodes in the right hilar. This may reflect sequela of prior granulomatous disease. The heart is normal in size. Extensive coronary artery calcifications. There is no pericardial effusion. The thoracic aorta is normal in caliber and without significant calcifications. The main pulmonary artery is minimally enlarged measuring 3.1 cm in diameter. Moderate calcifications of the aortic valve and mild calcifications of the mitral annulus. Hyperdense interventricular septum with low attenuation of the blood pool consistent with anemia. HEPATOBILIARY: No focal hepatic lesions. No biliary ductal dilation. GALLBLADDER: No radio-opaque stones or sludge. No wall thickening. SPLEEN: No splenomegaly. PANCREAS: No focal masses or ductal dilatation. ADRENALS: No adrenal nodules KIDNEYS/URETERS: No hydronephrosis. No cystic or solid mass lesions. No stones. GI TRACT: Mild diffuse wall thickening of the stomach may be overestimated by poor distention. No abnormal distention, wall thickening, or evidence of bowel obstruction. Scattered diverticulosis throughout the sigmoid colon without diverticulitis. 2 cm round soft tissue density within the ascending colon at the hepatic flexure, better seen on coronal image 42. Appendix is normal. PELVIC ORGANS/BLADDER: Prostate calcifications. The urinary bladder appears unremarkable. LYMPH NODES: No lymphadenopathy. VESSELS: The abdominal aorta and pelvic arteries are normal in caliber and associated with mild scattered atherosclerotic calcifications. PERITONEUM / RETROPERITONEUM: No free air or fluid. BONES: Partially visualized surgical screws in the right humeral head. Mild to moderate multilevel degenerative changes of the lumbar spine, worse at L4-L5. SOFT TISSUES: Unremarkable. IMPRESSION: 1. Indeterminate 2 cm round soft tissue density within the ascending colon at the hepatic flexure. Recommend further evaluation with colonoscopy. 2. Diffuse wall thickening of the stomach may be overestimated by poor distention. The common GI consultation. 3. Diverticulosis of the sigmoid colon without diverticulitis. Signed by: Dr. Sarah Hanson M.D. on 06/20/2018 8:56 PM
[2018-06-20] MEDS: NIFEDIPINE CR 30 MG TAB PO SCH (21:23)
[2018-06-21] VITALS (8 sets, daily range): BP systolic 143–175; BP diastolic 76–99
[2018-06-21] MEDS: LINEZOLID 600 MG/D5W 300ML 300 ML IV SCH ×2 (00:50→16:28)
[2018-06-21] MEDS: HYDRALAZINE HCL 20 MG/ML VIAL IV PRN (01:25)
[2018-06-21 04:42] LABS: BASOPHILS % 0.4 % (0.0-1.0); EOSINOPHILS # (AUTO) 0.3 (0.0-0.4); EOSINOPHILS % 4.2 % (0.0-6.0); HEMATOCRIT 21.6 % (38.2-49.6); LYMPHOCYTES # (AUTO) 2.5 (1.0-3.2); LYMPHOCYTES % 31.6 % (18.0-39.1); MEAN CORPUSCULAR HEMOGLOBIN 26.7 pg (28-32); MEAN CORPUSCULAR HGB CONC 31.5 g/dL (31-35); MEAN CORPUSCULAR VOLUME 84.7 fL (81-99); MONOCYTES # (AUTO) 0.7 (0.2-0.8); MONOCYTES % 9.1 % (4.4-11.3); NEUTROPHILS # (AUTO) 4.2 (2.1-6.9); NEUTROPHILS % 53.8 % (38.7-80.0); PLATELET COUNT 251 x10e3/uL (140-360); RED BLOOD COUNT 2.55 x10e6/uL (4.3-5.7); RED CELL DISTRIBUTION WIDTH 15.9 % (11.7-14.4)
[2018-06-21 05:10] LABS: ANION GAP 9.7 mmol/L (8-16); CALCIUM 7.7 mg/dL (8.4-10.2); CREATININE, SERUM 3.52 mg/dL (0.72-1.25); MAGNESIUM 1.6 MG/DL (1.3-2.1); PHOSPHORUS 4.4 MG/DL (2.3-4.7); POTASSIUM 4.7 mmol/L (3.5-5.1)
[2018-06-21 05:21] LABS: HEMOGLOBIN 6.8 g/dL (14.0-18.0)
[2018-06-21] MEDS ORDERED: LIDOCAINE 1% 5ML-MPF INJ ONE (06:00)
[2018-06-21] MEDS ORDERED: LIDOCAINE HCL 10 MG/ML VIAL INJ ONE (06:00)
[2018-06-21] MEDS ORDERED: SODIUM CHLORIDE 0.9% 250ML 250 ML IV ONE (06:15)
[2018-06-21] MEDS ORDERED: FUROSEMIDE INJ 10 MG/ML 4 ML VIAL IV ONE (07:15)
[2018-06-21] MEDS: INSULIN REGULAR, HUMAN 100 UNIT/1 ML 3ML VIAL SQ SCH ×4 (07:30→21:33)
--- NOTE | 2018-06-21 08:20 | Diagnostic Imaging Report ---
Exam: Right tibia/fibulaCT without contrast. History: Trauma. Pain. Fracture. Comparison:None Technique: Utilizing a 64-slice multidetector CT, axial imaging was performed through the right tibia/fibula without IV contrast. Multiplanar reformation was performed. Findings: Scattered degenerative changes are seen. This is most pronounced in the knee joint with associated chondrocalcinosis and loose bodies. No osseous erosion. No acute fracture, dislocation or evidence of avascular necrosis. Scattered vascular calcifications. No radiopaque foreign body. Mild focal soft tissue swelling along the anterior mid tibia best seen on sagittal reformatted image 40 and axial image 84. Impression: Mild focal soft tissue swelling along the anterior mid tibia. No acute fracture, dislocation or evidence of avascular necrosis. Signed by: Dr. Celso Denny M.D. on 06/21/2018 8:17 AM
--- NOTE | 2018-06-21 08:41 | Progress Note ---
DATE: June 21, 2018 Mr. Hernández is a 58-year-old man with a history of diabetes, hypertension, hyperlipidemia, came to the emergency room because he was having chest pain, shortness of breath, and he was feeling tired. He was found to have renal failure and anemia. He received 4 units of blood. He has been evaluated by GI due to the possibility of malignancy. Oncology consult was requested. The patient is going to have a bone marrow done and biopsy of lymph node. PHYSICAL EXAMINATION GENERAL: He is awake and alert. He is not very happy today. He is kind of upset with all the things that are going on. VITALS: Temperature is 96.9, blood pressure 159/76. HEART: Regular rate. LUNGS: Poor inspiratory effort. ABDOMEN: Soft. BLOOD WORK: Potassium 4.7, creatinine 3.52, glucose 86. White count is 7.87, hemoglobin 6.8, hematocrit 21.6. ASSESSMENT AND PLAN 1. Chest pain and shortness of breath probably due to anemia. 2. Severe anemia, multifactorial. 3. Paroxysmal atrial fibrillation. 4. Bffsk-gi-jdanuzc renal failure. 5. Uncontrolled hypertension. 6. Diabetes, type 2. 7. Metabolic acidosis. 8. Hyperphosphatemia. 9. Large axillary lymph node. PLAN: At the present time with this patient is continue ADA diet. Sliding scale with insulin. Continue Protonix. Careful use of Carafate because of renal failure. The patient is going to have a bone marrow done today. He is going to need a lymph node biopsy to rule out lymphoma. All of this was discussed with the patient. All questions were answered to satisfaction. Case also discussed with Dr. Batista. Job#: [id number] [facility]TN[facility]
[2018-06-21] MEDS: DOCUSATE SODIUM 100 MG CAP PO SCH ×2 (08:42→16:28)
[2018-06-21] MEDS: SUCRALFATE 1 GM TAB PO SCH ×3 (08:42→21:32)
[2018-06-21] MEDS: POLYETHYLENE GLYCOL 3350 17 GM PACK PO SCH (08:42)
[2018-06-21] MEDS: PANTOPRAZOLE 40 MG 10ML VIAL IV SCH ×2 (08:42→16:28)
[2018-06-21] MEDS: SODIUM BICARBONATE 650 MG TAB PO SCH ×3 (09:47→21:33)
[2018-06-21] MEDS: METOPROLOL TARTRATE 25 MG TAB PO SCH ×2 (09:47→16:29)
[2018-06-21] MEDS ORDERED: SODIUM CHLORIDE 0.9% 250ML 250 ML ONE (11:54)
--- NOTE | 2018-06-21 12:28 | Progress Note ---
DATE: June 21, 2018 REASON FOR CONSULTATION: CKD stage 5. SUBJECTIVE: Underwent EGD yesterday and cone biopsy and planned for lymph node biopsy. OBJECTIVE GENERAL: Lying comfortably in bed, no acute distress. VITAL SIGNS: Temperature 96.9, heart rate 52, respiratory rate 21, blood pressure 159/76. O2 sat is 99% on room air. HEENT: NC, AT. EOMI. LUNGS: Clear to auscultation bilaterally. No wheezing. No rales. HEART: Regular rhythm. EXTREMITIES: No edema. LABS: Reviewed in the electronic medical record. Significant for sodium of 132, bicarb of 20, BUN of 71, and creatinine of 3.5 with a calcium of 7.7. IMAGING: Reviewed on the electronic medical record. CT abdomen performed yesterday showed an indeterminate 2-cm round soft tissue density within the ascending colon at the hepatic flexure and diverticulosis. ASSESSMENT AND PLAN 1. Metabolic acidosis, improving. 2. Hypertension. Continue nifedipine and will add clonidine if blood pressures continue to rise. Metoprolol has been stopped as it was giving him bradycardia. 3. Lower extremity edema. Given Lasix 40 mg intravenous today. 4. Acute blood loss anemia, anemia of chronic kidney disease. Getting blood and started on erythropoietin. 5. Nonoliguric acute kidney injury on chronic kidney disease versus chronic kidney disease stage 5. No urgent indication for dialysis. Will continue to monitor closely. Making adequate urine and no signs and symptoms of uremia. 6. Hyponatremia, mild. Will monitor. Job#: [id number] [facility]
[2018-06-21 13:36] LABS: BASOPHILS % 0.4 % (0.0-1.0); EOSINOPHILS # (AUTO) 0.2 (0.0-0.4); EOSINOPHILS % 2.7 % (0.0-6.0); HEMATOCRIT 27.9 % (38.2-49.6); HEMOGLOBIN 9.1 g/dL (14.0-18.0); LYMPHOCYTES # (AUTO) 1.5 (1.0-3.2); LYMPHOCYTES % 20.4 % (18.0-39.1); MEAN CORPUSCULAR HEMOGLOBIN 27.5 pg (28-32); MEAN CORPUSCULAR HGB CONC 32.6 g/dL (31-35); MEAN CORPUSCULAR VOLUME 84.3 fL (81-99); MONOCYTES # (AUTO) 0.6 (0.2-0.8); MONOCYTES % 7.5 % (4.4-11.3); NEUTROPHILS # (AUTO) 5.1 (2.1-6.9); NEUTROPHILS % 68.2 % (38.7-80.0); PLATELET COUNT 256 x10e3/uL (140-360); RED BLOOD COUNT 3.31 x10e6/uL (4.3-5.7); RED CELL DISTRIBUTION WIDTH 15.8 % (11.7-14.4)
[2018-06-21] MEDS ORDERED: SODIUM CHLORIDE 0.9% 500ML 500 ML ONE (13:42)
[2018-06-21] MEDS ORDERED: BUPIVACAINE 0.25%/EPI 30ML SDV INJ ONE (13:43)
[2018-06-21] MEDS ORDERED: MIDAZOLAM HCL 2 MG/2 ML VIAL ONE (14:36)
[2018-06-21] MEDS ORDERED: FENTANYL CITRATE/PF 100MCG/2 ML INJ ONE (14:36)
[2018-06-21] MEDS ORDERED: ONDANSETRON HCL INJ 2 MG/ML VIAL IV PRN (14:45)
--- NOTE | 2018-06-21 15:35 | Operative Report ---
DATE OF PROCEDURE: June 21, 2018 PREOPERATIVE DIAGNOSIS: Left axillary adenopathy, rule out malignancy. POSTOPERATIVE DIAGNOSIS: Left axillary adenopathy, rule out malignancy, pending permanent section. OPERATION PERFORMED: Left axillary lymphadenectomy. ANESTHESIA: General. COMPLICATIONS: None. ESTIMATED BLOOD LOSS: Minimal. DESCRIPTION OF PROCEDURE: With the patient lying in bed in the supine position under good general anesthesia, the left axilla was prepped with Betadine solution and draped in the usual manner. The area overlying the palpable mass was then infiltrated with 1/4 percent Marcaine solution, and an incision was made at the base of the left axilla, carried down through the subcutaneous tissue and through the superficial fascia, and the axilla was entered. Upon entering the axilla, a group of enlarged lymph nodes was identified in the lateral aspect. These were rather large in size and were firm. This was from all of the surrounding structures. The axillary vein was identified and preserved in its entirety, and the lymph nodes were ligated with 3-0 Vicryl and sent for pathological examination. The whole area was thoroughly irrigated. Perfect hemostasis was ascertained. The superficial fascia was approximated with interrupted sutures of 3-0 Vicryl. The subcutaneous tissue was approximated with 3-0 Vicryl, and the skin was closed with subcuticular 5-0 Vicryl. Benzoin, Steri-Strips and dressings were applied. The sponge, lap and needle count was correct. The patient tolerated the procedure well and returned to the recovery room in stable condition. Job#: [id number] EV
[2018-06-21] MEDS: EPOETIN ALFA 10000 UNIT/ML VIAL SC SCH (16:28)
[2018-06-21] MEDS ORDERED: ONDANSETRON HCL INJ 2 MG/ML VIAL ONE (16:30)
[2018-06-21] MEDS ORDERED: SEVOFLURANE INHAL SOLN 250 ML PEN BTL ONE (16:30)
[2018-06-21] MEDS: HYDROCODONE/APAP 7.5MG-325MG 1 EA TAB PO PRN (16:30)
[2018-06-21] MEDS ORDERED: LIDOCAINE HCL 2% LOCAL INJ 5 ML SDV VIAL INJ ONE (16:30)
[2018-06-21] MEDS ORDERED: CEFAZOLIN SOD 1 GM VIAL ONE (16:30)
[2018-06-21] MEDS ORDERED: DEXAMETHASONE SOD PHOS INJ 4 MG/ML VIAL ONE (16:30)
[2018-06-21] MEDS ORDERED: PROPOFOL IV EMULSION 10 MG/ML 20 ML VIAL ONE (16:30)
[2018-06-21] MEDS: NIFEDIPINE CR 30 MG TAB PO SCH (21:32)
--- NOTE | 2018-06-21 23:00 | Progress Note ---
DATE: June 21, 2018 SUBJECTIVE: Patient has had a left axillary lymph node dissection today. Reports no abdominal pain. Already ate solid food. REVIEW OF SYSTEMS: GENERAL: No fever or chills. CVS: No chest pain on palpitation. RESPIRATORY: No cough or expectoration. MEDICATIONS: Reviewed the MAR. PHYSICAL EXAMINATION: VITAL SIGNS: Temperature 96.1, pulse 60, respirations 20, blood pressure 143/79, oxygen saturation 98% on room air. GENERAL: Not in any acute distress. Oral mucosa is moist. Anicteric sclerae. CVS: S1, S2 regular. LUNGS: Bilaterally grossly clear. ABDOMEN: Soft, nondistended, nontender. No mass or hernia. Positive bowel sound. EXTREMITIES: Warm. Trace bilateral leg edema. LABS: Hemoglobin has gone up to 9.1 after 4 units of packed red blood cell transfusion. CT of the abdomen and pelvis without IV contrast showed, 1. Indeterminate 2 cm round soft tissue density within the ascending colon at the hepatic flexure. Recommend further evaluation with colonoscopy. 2. Diffuse wall thickening of the stomach may be overestimated by the poor distension. 3. Diverticulosis of the sigmoid colon without diverticulitis. IMPRESSION: Microcytic anemia with unclear cause. Stool was tested positive for occult blood. Esophagogastroduodenoscopy performed. No significance source identified other than mild gastritis and duodenitis. Biopsies were taken. CT scan is showing some 2 cm nodule in the ascending colon that requires direct visualization with colonoscopy. PLAN: Clear liquid diet on Sunday and bowel prep on Sunday night for a colonoscopy on Sunday. Job#: [id number] [facility]
[2018-06-22] VITALS (7 sets, daily range): BP systolic 125–188; BP diastolic 62–86
[2018-06-22] MEDS: MORPHINE SULFATE 2 MG/ML SYR IV PRN (00:17)
[2018-06-22] MEDS: LINEZOLID 600 MG/D5W 300ML 300 ML IV SCH ×3 (00:30→23:12)
[2018-06-22 06:48] LABS: BASOPHILS % 0.2 % (0.0-1.0); EOSINOPHILS # (AUTO) 0.1 (0.0-0.4); EOSINOPHILS % 0.5 % (0.0-6.0); HEMATOCRIT 28.9 % (38.2-49.6); HEMOGLOBIN 9.7 g/dL (14.0-18.0); LYMPHOCYTES % 20.3 % (18.0-39.1); MEAN CORPUSCULAR HEMOGLOBIN 27.9 pg (28-32); MEAN CORPUSCULAR HGB CONC 33.6 g/dL (31-35); MONOCYTES # (AUTO) 0.7 (0.2-0.8); MONOCYTES % 7.6 % (4.4-11.3); NEUTROPHILS # (AUTO) 6.8 (2.1-6.9); NEUTROPHILS % 70.4 % (38.7-80.0); PLATELET COUNT 287 x10e3/uL (140-360); RED BLOOD COUNT 3.48 x10e6/uL (4.3-5.7); RED CELL DISTRIBUTION WIDTH 15.4 % (11.7-14.4)
[2018-06-22 07:12] LABS: ANION GAP 12.9 mmol/L (8-16); CALCIUM 8.2 mg/dL (8.4-10.2); CREATININE, SERUM 3.97 mg/dL (0.72-1.25); MAGNESIUM 1.5 MG/DL (1.3-2.1); PHOSPHORUS 4.5 MG/DL (2.3-4.7); POTASSIUM 4.9 mmol/L (3.5-5.1)
[2018-06-22] MEDS: INSULIN REGULAR, HUMAN 100 UNIT/1 ML 3ML VIAL SQ SCH ×4 (07:30→21:47)
[2018-06-22] MEDS: SODIUM BICARBONATE 650 MG TAB PO SCH ×3 (08:09→21:47)
[2018-06-22] MEDS: SUCRALFATE 1 GM TAB PO SCH ×4 (08:09→21:47)
[2018-06-22] MEDS: METOPROLOL TARTRATE 25 MG TAB PO SCH ×2 (08:09→17:30)
[2018-06-22] MEDS: POLYETHYLENE GLYCOL 3350 17 GM PACK PO SCH (08:09)
[2018-06-22] MEDS: PANTOPRAZOLE 40 MG 10ML VIAL IV SCH ×2 (08:09→17:30)
[2018-06-22] MEDS: DOCUSATE SODIUM 100 MG CAP PO SCH ×2 (08:09→17:30)
--- NOTE | 2018-06-22 13:48 | Progress Note ---
DATE: INTERNAL MEDICINE PROGRESS NOTE SUBJECTIVE: Patient is doing well, no significant complaints. PHYSICAL EXAM: VITAL SIGNS: Blood pressure 183/86. Temperature 98.2. Heart rate 60 per minute. Respiratory rate is 21 per minute. Oxygen saturation 99%. HEART: Shows regular rhythm. Normal S1 and S2 sounds. LUNGS: Clear bilaterally. ABDOMEN: Soft. EXTREMITIES: Show the wound on the right leg. BLOOD WORK: We have a BMP: Sodium 132, potassium 4.9, chloride 104, CO2 20, BUN 22, creatinine 3.97, glucose 96. On the CBC: White blood count 9.73, hemoglobin 9.7, hematocrit 28.9, platelet count 287,000. PT 15.0, INR 1.28, PTT 25.2. AST 12, ALT 16, total bilirubin 0.2, alkaline phosphatase 48. FINAL IMPRESSION: 1. Severe acute anemia. 2. Paroxysmal atrial fibrillation. 3. Jvklg-ni-rfkawgh renal failure stage 4 to 5. 4. Uncontrolled hypertension with hypertensive nephropathy. 5. Metabolic acidosis. 6. Right leg cellulitis. PLAN OF TREATMENT: We are going to continue Zyvox twice a day, morphine 2 mg IV q.3 h as needed. Continue metoprolol 2.5 mg IV q.6 h. for hypertension. Hydralazine 10 mg IV q.6 h. for hypertension. Colace 100 mg twice a day. Zofran 4 mg IV q.4 h. as needed for vomiting. I have increased the nifedipine to 60 mg twice a day. Continue clonidine 0.1 mg q.4 h. as needed for hypertension. Continue Epogen 10,000 units Sunday, Sunday and Sunday. Continue with [place] 1 tablet q.4 h. as needed for pain. Sodium bicarbonate 1950 mg 3 times a day. Carafate 1 gram before meals and at bedtime. Continue monitoring blood sugar a.c. and h.s. Metoprolol 25 mg twice a day. Protonix 40 mg twice a day. Bisacodyl 20 mg 1 time. A biopsy has been done on the left axillary area but Dr. Bui. We are going to continue the workup for anemia. Continue the antihypertensive regimen. Job#: [id number] EV
--- NOTE | 2018-06-22 14:54 | Progress Note ---
DATE: June 22, 2018 REASON FOR CONSULTATION: Chronic kidney disease. SUBJECTIVE: No acute events overnight. OBJECTIVE GENERAL: Laying comfortably in bed. VITAL SIGNS: Temperature 98.2, heart rate 60, respiratory rate 21, blood pressure 183/86 to 125/62, pulse ox 99% on room air. HEENT: NCAT. . Pupils equal and round. LUNGS: Clear to auscultation bilaterally. No wheezing or rales. HEART: Regular rate and rhythm. EXTREMITIES: No edema. LABS: Reviewed in electronic medical record. Significant for sodium of 132, bicarb of 20, BUN of 72, and creatinine of 3.9. ASSESSMENT AND PLAN 1. Hyponatremia: Will check urine sodium, urine osmol. Mild and likely secondary to kidney dysfunction. Will check urine sodium and urine osmol so we can be accurate in the setting of chronic kidney disease. Also, getting worked up for anemia in the setting of renal failure as anemia. Underwent a bone biopsy. 2. Metabolic acidosis: Continue sodium bicarbonate. 3. Hypertension: Continue nifedipine and metoprolol. 4. Acute kidney injury on chronic kidney disease versus chronic kidney disease, stage 5: Kidney function is stable. It is now trending downward. Improvement in gastrointestinal bleed. Will continue to monitor closely. No urgent indication for dialysis. 5. Hypothyroidism: Consult . 6. Anemia on chronic kidney disease: Received multiple units of blood and . Job#: [id number] [facility]
[2018-06-22] MEDS: NIFEDIPINE CR 30 MG TAB PO SCH (17:30)
[2018-06-22] MEDS: HYDROCODONE/APAP 7.5MG-325MG 1 EA TAB PO PRN (21:48)
[2018-06-23] VITALS: BP 151/81
[2018-06-23 04:00] VITALS: BP 165/79
[2018-06-23 06:28] LABS: ANION GAP 11.6 mmol/L (8-16); CALCIUM 7.7 mg/dL (8.4-10.2); CREATININE, SERUM 4.24 mg/dL (0.72-1.25); MAGNESIUM 1.5 MG/DL (1.3-2.1); PHOSPHORUS 4.4 MG/DL (2.3-4.7); POTASSIUM 4.6 mmol/L (3.5-5.1)
[2018-06-23] MEDS: INSULIN REGULAR, HUMAN 100 UNIT/1 ML 3ML VIAL SQ SCH ×4 (07:30→20:22)
[2018-06-23] MEDS: SUCRALFATE 1 GM TAB PO SCH ×4 (08:14→20:22)
[2018-06-23] MEDS: DOCUSATE SODIUM 100 MG CAP PO SCH ×2 (08:14→16:31)
[2018-06-23] MEDS: PANTOPRAZOLE 40 MG 10ML VIAL IV SCH ×2 (08:14→16:54)
[2018-06-23] MEDS: POLYETHYLENE GLYCOL 3350 17 GM PACK PO SCH (08:15)
[2018-06-23] MEDS: NIFEDIPINE CR 30 MG TAB PO SCH ×2 (08:15→16:55)
[2018-06-23] MEDS: METOPROLOL TARTRATE 25 MG TAB PO SCH ×2 (08:15→16:54)
[2018-06-23] MEDS: CYANOCOBALAMIN 1,000 MCG TAB PO SCH (08:15)
[2018-06-23] MEDS: HYDRALAZINE HCL 20 MG/ML VIAL IV PRN ×2 (08:15→16:54)
[2018-06-23] MEDS: FOLIC ACID 1 MG TAB PO SCH (08:15)
[2018-06-23] MEDS: SODIUM BICARBONATE 650 MG TAB PO SCH ×3 (08:15→20:22)
[2018-06-23 08:23] VITALS: BP 189/91
[2018-06-23] MEDS: LINEZOLID 600 MG/D5W 300ML 300 ML IV SCH (11:39)
[2018-06-23] MEDS: HYDROCODONE/APAP 7.5MG-325MG 1 EA TAB PO PRN ×2 (11:39→20:20)
[2018-06-23 11:58] VITALS: BP 163/85
--- NOTE | 2018-06-23 14:28 | Progress Note ---
DATE: INTERNAL MEDICINE PROGRESS NOTE SUBJECTIVE: She is doing well except for some sharp pain in the chest where she had a biopsy in the lymph node. PHYSICAL EXAM VITAL SIGNS: Blood pressure 163/85, temperature 98.2, heart rate 54 per minute, respiratory rate 20 per minute, and oxygen saturation 100%. HEART: Regular rhythm. Normal S1, S2 sounds. LUNGS: Clear bilaterally. ABDOMEN: Soft. EXTREMITIES: Show open wound on the medial aspect of the right leg. LABORATORY DATA: On the blood work, we have BMP with sodium 133, potassium 4.6, chloride 104, CO2 of 22, BUN 69, creatinine 4.24, and glucose 78. On the CBC; white blood count 9.73, hemoglobin 9.7, hematocrit 28.9, and platelet count 287,000. PT 15.0, INR 1.28, PTT 25.2, AST 12, ALT 16, total bilirubin 0.2, alkaline phosphatase of 48. FINAL IMPRESSION 1. Anemia, for which workup is in progress. 2. Chsyw-zr-jkwcqmv insufficiency stage IV. 3. Hypertension with hypertensive nephropathy. 4. Right leg wound with cellulitis. 5. Diabetes with diabetic nephropathy. 6. Anemia of chronic disease with some evidence of acute anemia. PLAN: We are going to have a colonoscopy for tomorrow. Continue Zyvox 600 mg IV twice a day, morphine 2 mg IV q.3 hours as needed, clonidine 0.1 mg q.4 hours as needed for hypertension, Epogen 10,000 units Sunday, Sunday and Sunday for anemia of chronic disease. Continue [place] 1 tablet q.4 hours as needed, vitamin B12 1000 mcg p.o. daily, sodium bicarbonate 1950 mg 3 times a day, Carafate 1 gram before meals and at bedtime, folic acid 1 mg daily. Continue monitoring blood sugar a.c. and h.s. Continue metoprolol 25 mg twice a day, Protonix 40 mg twice a day, bisacodyl 20 mg once for constipation, hydralazine 10 mg IV q.6 hours as needed, Colace 100 mg twice a day, Zofran 4 mg q.4 hours as needed, nifedipine 60 mg twice a day. Continue monitoring hemoglobin and hematocrit. Continue BMP for tomorrow. Renal diet and diabetic diet. Job#: [id number] [facility]
[2018-06-23 16:44] VITALS: BP 181/84
[2018-06-23] MEDS: FERROUS SULFATE 325 MG TAB PO SCH (16:54)
[2018-06-23] MEDS ORDERED: PEG (High)/E-LYTE SOLN 4,000 ML BTL PO ONE (18:00)
[2018-06-23 19:57] VITALS: BP 176/85
[2018-06-23] MEDS ORDERED: BISACODYL 5 MG TAB EC PO ONE (21:15)
[2018-06-23] MEDS: MORPHINE SULFATE 2 MG/ML SYR IV PRN (21:33)
[2018-06-24] VITALS (9 sets, daily range): BP systolic 147–190; BP diastolic 71–85
[2018-06-24] MEDS: CLONIDINE HCL 0.1 MG TAB PO PRN (00:11)
[2018-06-24] MEDS: LINEZOLID 600 MG/D5W 300ML 300 ML IV SCH ×2 (00:11→12:45)
[2018-06-24 05:04] LABS: BASOPHILS % 0.3 % (0.0-1.0); EOSINOPHILS # (AUTO) 0.3 (0.0-0.4); EOSINOPHILS % 4.1 % (0.0-6.0); HEMATOCRIT 26.7 % (38.2-49.6); HEMOGLOBIN 8.8 g/dL (14.0-18.0); LYMPHOCYTES # (AUTO) 2.2 (1.0-3.2); LYMPHOCYTES % 35.2 % (18.0-39.1); MEAN CORPUSCULAR HEMOGLOBIN 27.6 pg (28-32); MEAN CORPUSCULAR VOLUME 83.7 fL (81-99); MONOCYTES # (AUTO) 0.6 (0.2-0.8); MONOCYTES % 10.1 % (4.4-11.3); NEUTROPHILS # (AUTO) 3.1 (2.1-6.9); NEUTROPHILS % 49.5 % (38.7-80.0); PLATELET COUNT 237 x10e3/uL (140-360); RED BLOOD COUNT 3.19 x10e6/uL (4.3-5.7); RED CELL DISTRIBUTION WIDTH 15.4 % (11.7-14.4)
[2018-06-24 05:33] LABS: ANION GAP 12.5 mmol/L (8-16); CALCIUM 7.9 mg/dL (8.4-10.2); CREATININE, SERUM 3.76 mg/dL (0.72-1.25); POTASSIUM 4.5 mmol/L (3.5-5.1)
[2018-06-24 05:52] LABS: MAGNESIUM 1.3 MG/DL (1.3-2.1); PHOSPHORUS 4.5 MG/DL (2.3-4.7)
[2018-06-24] MEDS: SUCRALFATE 1 GM TAB PO SCH ×4 (07:30→21:15)
[2018-06-24] MEDS: INSULIN REGULAR, HUMAN 100 UNIT/1 ML 3ML VIAL SQ SCH ×4 (07:30→21:25)
[2018-06-24] MEDS: FERROUS SULFATE 325 MG TAB PO SCH ×3 (08:00→17:00)
--- NOTE | 2018-06-24 08:06 | Progress Note ---
DATE: June 24, 2018 Mr. Hernández is a 58-year-old man with a history of diabetes, hypertension, hyperlipidemia came to the emergency room complaining of fatigue, chest pain and shortness of breath. He was found to have severe anemia and renal failure. He received blood transfusion. Went for an EGD that showed ulcers. He is going for a colonoscopy today. He had a bone marrow biopsy and biopsy of the lymph node in the axillary area to rule out malignancy. PHYSICAL EXAMINATION GENERAL: Today, he is awake and alert. He is feeling better. VITALS: Blood pressure is 152/84, temperature 96. HEART: Regular rate. LUNGS: Clear to auscultation. ABDOMEN: Soft. BLOOD WORK: Potassium is 4.5, creatinine is 3.76, glucose is 82. White count is 6.16, hemoglobin 8.8, hematocrit 26.7, and platelets 237,000. ASSESSMENT AND PLAN 1. Chest pain and shortness of breath on admission probably due to anemia. 2. Severe anemia. 3. Paroxysmal atrial fibrillation. 4. Qudxa-op-hwefgdm renal failure. 5. Uncontrolled hypertension. 6. Diabetes, type 2. 7. Metabolic acidosis. 8. Large axillary lymph node. PLAN: At the present time, the patient is to continue to monitor hemoglobin. He is on Epogen. He already had an EGD done that shows an ulcer. He is on Protonix and Carafate. He is going for colonoscopy today. The patient had a bone marrow biopsy and a lymph node biopsy. We are awaiting for results. We are going to continue ADA diet and sliding scale with insulin. Continue to monitor blood pressure. All of this was discussed with the patient. All questions were answered to satisfaction. Job#: [id number] [facility]TN[facility]
[2018-06-24] MEDS: METOPROLOL TARTRATE 25 MG TAB PO SCH ×2 (09:00→17:00)
[2018-06-24] MEDS: DOCUSATE SODIUM 100 MG CAP PO SCH ×2 (09:00→17:00)
[2018-06-24] MEDS: CYANOCOBALAMIN 1,000 MCG TAB PO SCH (09:00)
[2018-06-24] MEDS: POLYETHYLENE GLYCOL 3350 17 GM PACK PO SCH (09:00)
[2018-06-24] MEDS: FOLIC ACID 1 MG TAB PO SCH (09:00)
[2018-06-24] MEDS: NIFEDIPINE CR 30 MG TAB PO SCH ×2 (09:00→17:00)
[2018-06-24] MEDS: FUROSEMIDE 40 MG TAB PO SCH (09:45)
[2018-06-24] MEDS ORDERED: MAGNESIUM SULFATE 2GM/50ML 50 ML IV ONE (09:45)
--- NOTE | 2018-06-24 10:21 | Progress Note ---
DATE: June 24, 2018 RENAL PROGRESS NOTE SUBJECTIVE: Followed for CKD, stage 4 to stage 5. Kidney function continues to improve. Creatinine is better at 3.76 today with estimated GFR of 17 mL/min. Appears slightly on the fluid overload side today. No nausea, no vomiting. No shortness of breath. Does have some mild lower extremity edema. OBJECTIVE: VITAL SIGNS: As follows: Blood pressure is elevated at 160s/80s, 61 pulse, 16 respirations, afebrile. LUNGS: Clear to auscultation bilaterally. CARDIOVASCULAR: S1 and S2. No rub. ABDOMEN: Soft, nontender. EXTREMITIES: 1+ edema. LABS: Sodium 133, potassium 4.5, chloride 102, bicarb 23, BUN 53, creatinine 3.76, glucose 82. Phosphorus 4.5. Magnesium is 1.3. H and H 8.8 and 26.7. IMPRESSION AND PLAN: 1. Chronic kidney disease, stage 4, stable kidney function. Will continue to monitor off intravenous fluids to avoid fluid overload. 2. Hypertension. Blood pressure continues to be elevated. Will decrease the bicarb orally to 2 tablets 3 times daily. 3. Anemia of chronic disease, on Epogen and iron. 4. Hyponatremia, could be from volume excess. Will decrease bicarb to 2 tablets 3 times a day and will start patient on oral Lasix 40 mg 1 tablet today and then daily. 5. Mild hypomagnesemia. Will replace with 2 g magnesium sulfate. Thank you once again. Job#: [id number]
[2018-06-24] MEDS: PANTOPRAZOLE 40 MG 10ML VIAL IV SCH ×2 (10:25→17:00)
[2018-06-24] MEDS: HYDRALAZINE HCL 20 MG/ML VIAL IV PRN (12:42)
[2018-06-24] MEDS: SODIUM BICARBONATE 650 MG TAB PO SCH ×2 (17:00→21:16)
[2018-06-24] MEDS: EPOETIN ALFA 10000 UNIT/ML VIAL SC SCH (17:00)
[2018-06-24] MEDS: HYDROCODONE/APAP 7.5MG-325MG 1 EA TAB PO PRN (21:28)
[2018-06-25] VITALS (7 sets, daily range): BP systolic 152–188; BP diastolic 72–86
[2018-06-25] MEDS: LINEZOLID 600 MG/D5W 300ML 300 ML IV SCH ×2 (00:59→12:50)
[2018-06-25] MEDS: HYDRALAZINE HCL 20 MG/ML VIAL IV PRN (04:34)
[2018-06-25 05:41] LABS: ANION GAP 13.8 mmol/L (8-16); CREATININE, SERUM 4.01 mg/dL (0.72-1.25); MAGNESIUM 1.7 MG/DL (1.3-2.1); PHOSPHORUS 4.7 MG/DL (2.3-4.7); POTASSIUM 4.8 mmol/L (3.5-5.1)
[2018-06-25] MEDS: INSULIN REGULAR, HUMAN 100 UNIT/1 ML 3ML VIAL SQ SCH ×4 (07:30→20:43)
[2018-06-25] MEDS: DOCUSATE SODIUM 100 MG CAP PO SCH ×2 (08:23→17:06)
[2018-06-25] MEDS: PANTOPRAZOLE 40 MG 10ML VIAL IV SCH ×2 (08:23→17:06)
[2018-06-25] MEDS: SUCRALFATE 1 GM TAB PO SCH ×4 (08:23→20:43)
[2018-06-25] MEDS: FUROSEMIDE 40 MG TAB PO SCH (08:23)
[2018-06-25] MEDS: FOLIC ACID 1 MG TAB PO SCH (08:23)
[2018-06-25] MEDS: FERROUS SULFATE 325 MG TAB PO SCH ×3 (08:23→17:06)
[2018-06-25] MEDS: METOPROLOL TARTRATE 25 MG TAB PO SCH ×2 (08:24→17:06)
[2018-06-25] MEDS: POLYETHYLENE GLYCOL 3350 17 GM PACK PO SCH (08:24)
[2018-06-25] MEDS: NIFEDIPINE CR 30 MG TAB PO SCH ×2 (08:24→17:06)
[2018-06-25] MEDS: SODIUM BICARBONATE 650 MG TAB PO SCH ×3 (08:24→20:43)
[2018-06-25] MEDS: CYANOCOBALAMIN 1,000 MCG TAB PO SCH (08:24)
--- NOTE | 2018-06-25 09:05 | Progress Note ---
DATE: June 25, 2018 Mr. Hernández is a 58-year-old man with diabetes, hypertension, hyperlipidemia came to the emergency room with fatigue and shortness of breath. He was found to be anemic. Had an EGD and a colonoscopy done. EGD showed ulcer. Colonoscopy was normal. Received blood transfusion. He also had a bone marrow biopsy and a biopsy of a lymph node, probably malignancy, prior leg cellulitis and wound. He is on IV antibiotics and wound care. PHYSICAL EXAMINATION GENERAL: Today, he is awake and alert. VITALS: Temperature is 97.8, blood pressure 152/72. HEART: Regular rate. LUNGS: Clear to auscultation. ABDOMEN: Soft. BLOOD WORK: Potassium 4.8, creatinine still high at 4.01, glucose 86. White count is 6.16, hemoglobin 8.8, hematocrit 26.7. ASSESSMENT AND PLAN 1. Chest pain with shortness of breath due to anemia, much better. 2. Severe anemia: Status post esophagogastroduodenoscopy and colonoscopy. 3. Umnvj-uj-eufypjh renal failure. 4. Paroxysmal atrial fibrillation. 5. Uncontrolled hypertension. 6. Diabetes, type 2. 7. Metabolic acidosis. 8. Axillary lymph node: Status post biopsy. 9. Right leg cellulitis and infected wound. PLAN: At the present time, continue to monitor creatinine. Continue to monitor hemoglobin and hematocrit. Continue wound care and IV antibiotics. The patient was started on Epogen for the anemia. Continue to monitor renal function, ADA diet and a sliding scale with insulin. All of this was discussed with the patient. All questions were answered to satisfaction. Job#: [id number] BRITTNEE
--- NOTE | 2018-06-25 10:08 | Progress Note ---
DATE: June 25, 2018 RENAL PROGRESS NOTE SUBJECTIVE: Followed for chronic kidney disease, stage 4. Kidney function is more or less stable. Creatinine does go up and down as it has been during this hospitalization. The patient is in no acute distress. No nausea, no vomiting. No shortness of breath. OBJECTIVE VITAL SIGNS: Have been noted. The blood pressure is better at 150s over 70s, now 72 pulse, afebrile. LUNGS: Clear to auscultation bilaterally. CARDIOVASCULAR: S1 and S2. No rub. ABDOMEN: Soft, nontender. EXTREMITIES: There is 1+ edema. LABS: Potassium 4.8, BUN 51, creatinine 4. IMPRESSION AND PLAN 1. Chronic kidney disease, stage 4, more or less stable. Estimated GFR is 16 mL per minute. Will continue to monitor. No current urgent indication for dialysis. 2. Hypertension. Blood pressure is better controlled. I have decreased the sodium bicarbonate further since the bicarb is maintaining at 23. 3. Anemia of chronic disease, stable. Will continue to monitor closely. Likely, he will benefit from Epogen and iron as an outpatient. Thank you once again. Job#: [id number]
[2018-06-25] MEDS ORDERED: PROPOFOL IV EMULSION 10 MG/ML 20 ML VIAL IV ONE (14:10)
[2018-06-25] MEDS ORDERED: LIDOCAINE HCL 2% LOCAL INJ 5 ML SDV VIAL INJ ONE (14:10)
--- NOTE | 2018-06-25 18:45 | Progress Note ---
DATE: June 25, 2018 GI PROGRESS NOTE SUBJECTIVE: The patient reports no abdominal pain. He has not had any bowel movement since yesterday. He has had a colonoscopy yesterday. REVIEW OF SYSTEMS: GENERAL: No fever or chills. CVS: No chest pain or palpitation. RESPIRATORY: No cough or expectoration. MEDICATIONS: Reviewed the MAR. PHYSICAL EXAMINATION VITAL SIGNS: Temperature 96.9, pulse 66, respirations 18, blood pressure 157/79 to 121/78. Oxygen saturation 99% on room air. GENERAL: Not in any acute distress, sitting comfortably at the bedside. Oral mucosa is moist. Anicteric sclerae. CVS: S1and S2 regular. LUNGS: Bilaterally grossly clear. AXILLARY AREA: Left axillary wound from the lymph node biopsy. ABDOMEN: Soft, nondistended, nontender. No mass or hernia. Positive bowel sounds. EXTREMITIES: Warm with no leg edema. IMPRESSION: 1. Anemia with heme positive stool. Upper endoscopy showed gastritis, esophagitis. Gastric biopsy positive for H. pylori infection. 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 2. Colonoscopy did not show any malignant mass. However, it did show some polyps which were removed. Polyp biopsy result pending. 3. Chronic renal failure, probably medical renal disease as evident on renal ultrasound, stage 4 kidney disease. 4. Anemia, possible of chronic disease. 5. Lymph node biopsy result pending. Hematology, oncology service is following the patient. 6. Constipation, likely related to medication. PLAN: Daily bowel regimen. Treatment of H. pyloric infection as an outpatient. Follow up colon polyps histology results. Since the patient has heme positive stool, which cannot be completely explained with upper endoscopy as well as colonoscopy finding. Therefore, he should get a small bowel video capsule exam as an outpatient. I have given my business card to the patient. I will follow him in my office within one week after discharge. Job#: [id number]
[2018-06-25] MEDS: HYDROCODONE/APAP 7.5MG-325MG 1 EA TAB PO PRN (19:02)
[2018-06-25] MEDS: SENNA-S TABLET PO SCH (20:43)
[2018-06-26] VITALS (8 sets, daily range): BP systolic 153–206; BP diastolic 66–95
[2018-06-26] MEDS: LINEZOLID 600 MG/D5W 300ML 300 ML IV SCH (01:24)
[2018-06-26] MEDS: HYDROCODONE/APAP 7.5MG-325MG 1 EA TAB PO PRN (01:25)
[2018-06-26 06:16] LABS: ANION GAP 15.4 mmol/L (8-16); CALCIUM 8.4 mg/dL (8.4-10.2); CREATININE, SERUM 4.05 mg/dL (0.72-1.25); POTASSIUM 4.4 mmol/L (3.5-5.1)
[2018-06-26] MEDS: INSULIN REGULAR, HUMAN 100 UNIT/1 ML 3ML VIAL SQ SCH ×4 (07:30→20:41)
[2018-06-26] MEDS: SUCRALFATE 1 GM TAB PO SCH ×4 (07:34→20:58)
[2018-06-26] MEDS: DOCUSATE SODIUM 100 MG CAP PO SCH ×2 (07:35→16:20)
[2018-06-26] MEDS: PANTOPRAZOLE 40 MG 10ML VIAL IV SCH ×2 (07:35→16:20)
[2018-06-26] MEDS: FERROUS SULFATE 325 MG TAB PO SCH ×3 (07:35→16:20)
[2018-06-26] MEDS: FOLIC ACID 1 MG TAB PO SCH (07:35)
[2018-06-26] MEDS: METOPROLOL TARTRATE 25 MG TAB PO SCH ×2 (07:35→16:20)
[2018-06-26] MEDS: POLYETHYLENE GLYCOL 3350 17 GM PACK PO SCH (07:35)
[2018-06-26] MEDS: FUROSEMIDE 40 MG TAB PO SCH ×2 (07:35→16:20)
[2018-06-26] MEDS: CYANOCOBALAMIN 1,000 MCG TAB PO SCH (07:36)
[2018-06-26] MEDS: SODIUM BICARBONATE 650 MG TAB PO SCH ×3 (07:36→20:58)
[2018-06-26] MEDS: NIFEDIPINE CR 30 MG TAB PO SCH ×2 (07:36→16:20)
--- NOTE | 2018-06-26 09:34 | Progress Note ---
DATE: June 26, 2018 Mr. Hernández is a 58-year-old man with a history of diabetes, hypertension, hyperlipidemia came to the emergency room with shortness of breath and fatigue. He was very anemic. He had an EGD and colonoscopy done. EGD showed some ulcer and is positive for H. pylori. Colonoscopy was normal. He also was found to have a lymph node. He underwent a biopsy of the lymph node and bone marrow. We are still awaiting for results. PHYSICAL EXAMINATION GENERAL: Today, he is awake and alert. VITALS: Temperature is 96.8, blood pressure 186/66. HEART: Regular rate. LUNGS: Clear to auscultation. ABDOMEN: Soft. EXTREMITIES: He has a wound in the right lower extremity. BLOOD WORK: Potassium 4.4, creatinine is 4.05, glucose 86. White count 6.16, hemoglobin 8.8, hematocrit 26.7. ASSESSMENT AND PLAN 1. Severe anemia requiring blood transfusion. 2. Gastric ulcer. 3. Positive Helicobacter pylori infection. 4. Doydy-aq-hsufhzo renal failure. 5. Paroxysmal atrial fibrillation. 6. Diabetes, type 2. 7. Uncontrolled hypertension. 8. Axillary lymph node: Status post biopsy concerning for lymphoma. 9. Right lower extremity cellulitis. PLAN: At the present time, continue to monitor hemoglobin and hematocrit. Continue IV antibiotics. The patient was started on Epogen. Continue ADA diet. Sliding scale with insulin. Stomach biopsy came back positive for H. pylori. We are awaiting for the bone marrow biopsy and the lymph node biopsy results. All of this was discussed with the patient. All questions were answered to satisfaction. Job#: [id number] BRITTNEE
[2018-06-26] MEDS ORDERED: MAGNESIUM HYDROXIDE 30 ML UDC PO PRN (11:30)
[2018-06-26] MEDS: DOXYCYCLINE HYCLATE TABLET 100 MG TAB PO SCH ×2 (12:30→20:58)
[2018-06-26] MEDS: CLONIDINE HCL 0.1 MG TAB PO PRN (13:04)
--- NOTE | 2018-06-26 14:33 | Progress Note ---
DATE: June 26, 2018 RENAL PROGRESS NOTE SUBJECTIVE: Followed for chronic kidney disease, stage 4, acute kidney injury. Stable kidney function at this time. No nausea, no vomiting, no shortness of breath. Starting to have some edema over the legs. The patient is on oral Lasix 40 mg once a day. OBJECTIVE VITAL SIGNS: The blood pressure is 180s over 80s, 63 pulse, afebrile. LUNGS: Clear to auscultation bilaterally. CARDIOVASCULAR: S1 and S2. No rub. ABDOMEN: Soft, nontender. EXTREMITIES: There is 1 to 2+ edema. LABS: Hemoglobin 8.8, hematocrit 26.7. Sodium 135, potassium 4.4, chloride 102, bicarb 22, BUN 46, creatinine 4.05. IMPRESSION AND PLAN 1. Acute kidney injury on chronic kidney disease, stage 4. Patient continues to remain at stage 4 to stage 5 chronic kidney disease. Appears to be stabilized. No current indication for acute dialysis. The patient's estimated GFR is at 15 mL per minute. Will continue to monitor closely and have the patient follow up in the office once the patient is discharged. Will increase the Lasix to 40 mg twice a day and monitor his kidney function closely. 2. Hypertension. Blood pressure is elevated. Will adjust blood pressure medications to allow blood pressure to improve within range of about 140 mmHg systolic BP. 3. Edema. Will increase Lasix to 40 mg twice a day and make further recommendations. 4. Proteinuria. Will do outpatient followup and make further recommendations. 5. No current acute indication for dialysis. Will continue to watch the patient closely with you and have him follow up with me in clinic when he is discharged from here. Job#: [id number]
[2018-06-26 15:31] LABS: CREATININE,URINE RANDOM 24.32 mg/dL (63-166); TOTAL PROTEIN, URINE 193.5 mg/dL (1-14)
[2018-06-26] MEDS: HYDRALAZINE HCL 25 MG TAB PO SCH ×2 (16:19→20:58)
--- NOTE | 2018-06-26 19:38 | Progress Note ---
DATE: June 26, 2018 GI PROGRESS NOTE SUBJECTIVE: Patient reports no abdominal pain. He has had a good bowel movement today. Stool soft, brown. REVIEW OF SYSTEMS: GENERAL: No fever or chills. CVS: No chest pain or palpitations. RESPIRATORY: No cough or expectoration. MEDICATIONS: Inpatient medication list reviewed as per JAN. PHYSICAL EXAMINATION VITAL SIGNS: Temperature 97, pulse 69, respiration 20, blood pressure 183/86, oxygen saturation 100% on room air. GENERAL: Not in any acute distress. Sitting comfortably at the bedside couch. Oral mucosa is moist. Anicteric sclerae. CVS: S1 S2 regular. LUNGS: Bilaterally grossly clear. ABDOMEN: Soft. Protuberant belly, nondistended, nontender. No mass or hernia. Positive. Bowel sound. EXTREMITIES: Warm. No leg edema. LABS: WBC 6.16, hemoglobin 8.8, hematocrit 26.7, MCV 83.7, platelet count 237,000. Sodium 135, potassium 102, potassium 4.4, chloride 102, bicarb 22, BUN 46, creatinine 4.05. PROBLEMS: 1. Anemia with heme positive stool. Upper endoscopy showed gastritis, esophagitis. Gastric biopsies positive for H. pylori infection. 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 2. Colonoscopy did not show any malignant mass. However, it did show some polyps. Polyp histology is pending. 3. Chronic renal failure likely stage 4. Being followed by nephrology service. 4. Anemia, possibly of chronic disease. In his case, he has chronic kidney disease. Hematology service is also following. Axillary lymph node biopsy result is pending. 5. Constipation. Being on iron, he is at the risk of developing constipation. Therefore, he should be on daily bowel regimen. PLAN: Treatment of H. pylori infection as an outpatient. Daily bowel regimen as long as he is going to be on iron. Patient can be discharged from GI standpoint. Since patient has anemia with heme positive stool, EGD and colonoscopy are not very conclusive about source of blood loss. Therefore he should undergo small bowel video capsule exam electively as an outpatient. I have given him my card. Patient will call my office to set up an appointment to see me within 1 to 2 weeks after discharge. Job#: [id number]
[2018-06-26] MEDS: SENNA-S TABLET PO SCH (20:58)
[2018-06-27] VITALS (8 sets, daily range): BP systolic 146–188; BP diastolic 61–88
[2018-06-27] MEDS: HYDROCODONE/APAP 7.5MG-325MG 1 EA TAB PO PRN ×3 (01:03→14:20)
[2018-06-27] MEDS: CLONIDINE HCL 0.1 MG TAB PO PRN (05:44)
[2018-06-27 06:05] LABS: ANION GAP 15.6 mmol/L (8-16); CALCIUM 8.3 mg/dL (8.4-10.2); CREATININE, SERUM 3.96 mg/dL (0.72-1.25); MAGNESIUM 1.5 MG/DL (1.3-2.1); PHOSPHORUS 3.9 MG/DL (2.3-4.7); POTASSIUM 4.6 mmol/L (3.5-5.1)
[2018-06-27] MEDS: INSULIN REGULAR, HUMAN 100 UNIT/1 ML 3ML VIAL SQ SCH ×4 (07:30→20:56)
[2018-06-27] MEDS: FERROUS SULFATE 325 MG TAB PO SCH ×3 (08:39→15:48)
[2018-06-27] MEDS: DOCUSATE SODIUM 100 MG CAP PO SCH ×2 (08:39→15:48)
[2018-06-27] MEDS: FOLIC ACID 1 MG TAB PO SCH (08:39)
[2018-06-27] MEDS: SUCRALFATE 1 GM TAB PO SCH ×4 (08:39→20:55)
[2018-06-27] MEDS: HYDRALAZINE HCL 25 MG TAB PO SCH ×3 (08:39→20:55)
[2018-06-27] MEDS: FUROSEMIDE 40 MG TAB PO SCH ×2 (08:39→15:49)
[2018-06-27] MEDS: PANTOPRAZOLE 40 MG 10ML VIAL IV SCH ×2 (08:39→15:48)
[2018-06-27] MEDS: POLYETHYLENE GLYCOL 3350 17 GM PACK PO SCH (08:39)
[2018-06-27] MEDS: METOPROLOL TARTRATE 25 MG TAB PO SCH ×2 (08:39→15:49)
[2018-06-27] MEDS: DOXYCYCLINE HYCLATE TABLET 100 MG TAB PO SCH ×2 (08:40→20:55)
[2018-06-27] MEDS: SODIUM BICARBONATE 650 MG TAB PO SCH ×3 (08:40→20:55)
[2018-06-27] MEDS: NIFEDIPINE CR 30 MG TAB PO SCH ×2 (08:40→15:49)
[2018-06-27] MEDS: CYANOCOBALAMIN 1,000 MCG TAB PO SCH (08:40)
--- NOTE | 2018-06-27 09:59 | Discharge Summary ---
Mr. Hernández is a 58-year-old man with history of diabetes, hypertension, hyperlipidemia. He came to the emergency room complaining of chest pain and shortness of breath. He was found to have severe anemia and renal failure. He has been evaluated by GI, order entry clerk, oncologist, investment officer. The plan at the present time is to discharge him home and have him follow up as an outpatient. On physical examination, he is awake and alert. Temperature is 98.5, blood pressure 188/88. The heart is regular rate. The lungs are clear to auscultation. The abdomen is distended and soft. On the blood work, potassium 4.6, creatinine 3.96, glucose 85. White count 6.16, hemoglobin 8.8, hematocrit 26.7. Lymph node biopsy still pending. Stomach biopsy shows H. pylori infection. ASSESSMENT AND PLAN 1. Severe anemia that has been multifactorial and required blood transfusion. 2. Helicobacter pylori infection. 3. Szaxq-ml-afwcqfj renal failure. 4. Paroxysmal atrial fibrillation. 5. Diabetes, type 2. 6. Uncontrolled hypertension. 7. Enlarged lymph node, awaiting biopsy. 8. Right lower extremity cellulitis. The plan at the present time is to discharge the patient home if it is okay with the consultants. He is going to be on doxycycline 100 mg twice a day for 10 days, treatment for 10 days for his H. pylori infection. He is also going to be taking nifedipine 60 mg twice a day, sodium bicarbonate 650 three times a day, Lasix 40 mg daily, metoprolol 25 twice a day, hydralazine 50 three times a day, folic acid 1 gram daily. We are also going to put him on Amaryl 2 mg daily and have him check his sugar. He is going to continue ADA diet. Like I said before, he is going to need followup with order entry clerk. He is going to need followup with denture processor-oncologist for probable lymphoma. He is going to need followup with GI for the gastric ulcer and H. pylori. He is going to need followup with infectious disease for the right lower extremity wound and cellulitis. He also needs followup with his PCP for his diabetes and hypertension. All of this was discussed with the patient, and all questions were answered to satisfaction. LUTHER WONG MD Job#: [id number] MH
[2018-06-27] MEDS ORDERED: nifedipine PO (10:30)
[2018-06-27] MEDS ORDERED: metoprolol PO (10:31)
[2018-06-27] MEDS ORDERED: HYDRALAZINE HCL25 MG PO (10:31)
[2018-06-27] MEDS ORDERED: FOLIC ACID1 MG PO (10:32)
[2018-06-27] MEDS ORDERED: AMARYL2 MG PO (10:32)
[2018-06-27] MEDS ORDERED: DOXYCYCLINE HY100 MG PO (10:33)
[2018-06-27] MEDS ORDERED: OMECLAMOX-PAK1 EACH (10:34)
[2018-06-27] MEDS ORDERED: LASIX40 MG PO (10:35)
[2018-06-27] MEDS ORDERED: SODIUM BICARBO650 MG PO (10:35)
--- NOTE | 2018-06-27 11:40 | Diagnostic Imaging Report ---
PROCEDURE:X-RAY LEFT SHOULDER, COMPLETE COMPARISON:None. INDICATIONS:LEFT SHOULDER PAIN FINDINGS: Normal mineralization. No acute displaced fracture or dislocation. Degenerative changes in the glenohumeral and acromioclavicular joints. Osteophyte is noted in the inferior aspect of the distal clavicle. 2-3 mm bony fragment projecting projecting in the glenohumeral space this. No lytic or blastic lesions. Soft tissues are unremarkable. CONCLUSION: 1. 2-3 mm bony fragment projecting in the glenohumeral space may represent a loose body or sequela of labral degenerative changes or trauma. MRI of the shoulder is recommended for further evaluation. 2. Osteophyte is noted in the inferior aspect of the distal clavicle. This may result in impingement and can also be evaluated with above MRI. Zak Roth M.D. Dictated by: Zak Roth M.D. on 06/27/2018 at 11:46 Electronically approved by: Zak Roth M.D. on 06/27/2018 at 11:46
--- NOTE | 2018-06-27 12:53 | Progress Note ---
DATE: June 27, 2018 RENAL PROGRESS NOTE SUBJECTIVE: Followed for acute kidney injury on chronic kidney disease. The patient appears to be CKD stage 4. Creatinine is stable at 3.96, better actually compared to yesterday. No nausea, no vomiting, no shortness of breath. OBJECTIVE VITAL SIGNS: Blood pressure 146/72, 60 pulse, afebrile. LUNGS: Clear to auscultation bilaterally. CARDIOVASCULAR: S1 and S2. No rub. ABDOMEN: Soft, nontender. EXTREMITIES: No edema. LABS: Reviewed as follows: Creatinine 3.96, potassium 4.6, phosphorus 3.9, magnesium 1.5. IMPRESSION AND PLAN 1. Chronic kidney disease, stage 4, stable. Continue to monitor and continue to follow as outpatient. 2. Hypertension. Blood pressure is better controlled now. 3. Proteinuria. Outpatient followup. Job#: [id number]
--- NOTE | 2018-06-27 19:44 | Diagnostic Imaging Report ---
SHOULDER LEFT 1 VIEW, SHOULDER LEFT COMPLETE - 3 views HISTORY: Pain COMPARISON: None available. FINDINGS: Bones: No acute displaced fracture. Osseous alignment is within normal limits. Joints: Mild degenerative changes of the before meals and glenohumeral joints. Soft tissues: The soft tissues appear unremarkable. IMPRESSION: No evidence of acute dislocation. Signed by: Dr. Karol Urrutia M.D. on 06/27/2018 7:40 PM
[2018-06-27] MEDS: SENNA-S TABLET PO SCH (20:55)
[2018-06-28] VITALS: BP 145/74
[2018-06-28 04:00] VITALS: BP 175/81
[2018-06-28 06:01] LABS: ANION GAP 15.5 mmol/L (8-16); CALCIUM 8.3 mg/dL (8.4-10.2); CREATININE, SERUM 4.07 mg/dL (0.72-1.25); POTASSIUM 4.5 mmol/L (3.5-5.1)
[2018-06-28] MEDS: CLONIDINE HCL 0.1 MG TAB PO PRN (06:12)
[2018-06-28] MEDS: INSULIN REGULAR, HUMAN 100 UNIT/1 ML 3ML VIAL SQ SCH (07:30)
[2018-06-28 08:18] VITALS: BP 136/64
[2018-06-28] MEDS: SUCRALFATE 1 GM TAB PO SCH (08:21)
[2018-06-28] MEDS: CYANOCOBALAMIN 1,000 MCG TAB PO SCH (08:22)
[2018-06-28] MEDS: DOCUSATE SODIUM 100 MG CAP PO SCH (08:22)
[2018-06-28] MEDS: HYDRALAZINE HCL 25 MG TAB PO SCH (08:22)
[2018-06-28] MEDS: FERROUS SULFATE 325 MG TAB PO SCH (08:22)
[2018-06-28] MEDS: PANTOPRAZOLE 40 MG 10ML VIAL IV SCH (08:22)
[2018-06-28] MEDS: SODIUM BICARBONATE 650 MG TAB PO SCH (08:22)
[2018-06-28] MEDS: DOXYCYCLINE HYCLATE TABLET 100 MG TAB PO SCH (08:22)
[2018-06-28] MEDS: POLYETHYLENE GLYCOL 3350 17 GM PACK PO SCH (08:22)
[2018-06-28] MEDS: FUROSEMIDE 40 MG TAB PO SCH (08:22)
[2018-06-28] MEDS: FOLIC ACID 1 MG TAB PO SCH (08:22)
[2018-06-28] MEDS: NIFEDIPINE CR 30 MG TAB PO SCH (08:23)
[2018-06-28] MEDS: METOPROLOL TARTRATE 25 MG TAB PO SCH (08:23)
--- NOTE | 2018-06-28 10:20 | Discharge Summary ---
ADDENDUM TO DISCHARGE SUMMARY Mr. Hernández is a 58-year-old male with a history of diabetes, hypertension, hyperlipidemia. He came to the emergency room with chest pain and shortness of breath. He was found to have anemia and renal failure. He was seen by junior account manager and GI. He had an EGD and colonoscopy done. He was found to have H. pylori infection. He also was evaluated by oncologist who thought the patient may have some type of lymphoma. Apparently, he fell and was complaining of left shoulder pain yesterday. He had an x-ray done and was seen by orthopedics. Today, the patient is doing better. Temperature is 97.4, blood pressure 136/64. The heart is regular rate. The lungs are clear to auscultation. Abdomen is soft. On the blood work, potassium is 4.5, creatinine 4.07, glucose 78, white count 6.16, hemoglobin 8.8, hematocrit 26.7. DISCHARGE DIAGNOSES 1. Anemia, multifactorial, requiring blood transfusion. 2. Gastric ulcer. 3. Helicobacter pylori infection. 4. Jevpu-mh-supzpqg renal failure. 5. Paroxysmal atrial fibrillation. 6. Diabetes, type 2. 7. Uncontrolled hypertension. 8. Enlarged lymph node, status post biopsy, with suspicion of lymphoma. 9. Right lower extremity cellulitis. The plan at the present time with this patient is to discharge him home. He is on: 1. Nifedipine 60 mg twice a day. 2. Lasix 40 mg daily. 3. Metoprolol 25 mg twice a day. 4. Hydralazine 50 mg 3 times a day. 5. Folic acid 1 gram daily. 6. Amaryl 2 mg daily. 7. He is also to take doxycycline 100 mg twice a day. That was given by GI for H. pylori infection. He needs followup with PCP next week. He needs followup with GI, junior account manager and hr intern-oncologist as directed. All of this was discussed with the patient. All questions were answered to satisfaction. LUTHER WONG MD Job#: [id number]
--- NOTE | 2018-06-28 12:35 | Progress Note ---
DATE: June 28, 2018 RENAL PROGRESS NOTE SUBJECTIVE: Followed for chronic kidney disease stage IV, stable kidney function. Creatinine today is around 4.07. No nausea, no vomiting, no shortness of breath. OBJECTIVE VITAL SIGNS: Have been noted and are stable. LUNGS: Clear to auscultation bilaterally. CARDIOVASCULAR: S1, S2. No rub. ABDOMEN: Soft, nontender. EXTREMITIES: No edema. LABORATORY DATA: Labs have been reviewed. Creatinine is 4.07. IMPRESSION AND PLAN 1. Chronic kidney disease stage 4, stable. We will continue to follow outpatient, also while in the hospital. 2. Hypertension, blood pressure is more or less controlled. Continue to monitor closely. 3. Anemia of chronic disease, stable. We will continue to monitor and continue outpatient followup as well. Job#: [id number] DUSTIN
== END 2018-06-28 11:10 | disposition home or self-care (01) | DRG 987 ==
LOC: ER 09:11 → ERHOLD 11:36 → ACU 13:58 → MED/SURG 14:00
PROVIDERS: ADMIT Internal Medicine; ATTEND Internal Medicine
PROC: 30233N1 Transfusion of Nonautologous Red Blood Cells into Peripheral Vein, Percutaneous Approach (ICD-10-PCS; 2018-06-17)
PROC: 0DB38ZX Excision of Lower Esophagus, Via Natural or Artificial Opening Endoscopic, Diagnostic (ICD-10-PCS; 2018-06-20)
PROC: 0DB68ZX Excision of Stomach, Via Natural or Artificial Opening Endoscopic, Diagnostic (ICD-10-PCS; 2018-06-20)
PROC: 0W3P8ZZ Control Bleeding in Gastrointestinal Tract, Via Natural or Artificial Opening Endoscopic (ICD-10-PCS; 2018-06-20)
PROC: 3E0G8GC Introduction of Other Therapeutic Substance into Upper GI, Via Natural or Artificial Opening Endoscopic (ICD-10-PCS; 2018-06-20)
PROC: 0DB78ZX Excision of Stomach, Pylorus, Via Natural or Artificial Opening Endoscopic, Diagnostic (ICD-10-PCS; principal; 2018-06-20 15:45)
PROC: 07B60ZX Excision of Left Axillary Lymphatic, Open Approach, Diagnostic (ICD-10-PCS; 2018-06-21)
PROC: 0DBN8ZX Excision of Sigmoid Colon, Via Natural or Artificial Opening Endoscopic, Diagnostic (ICD-10-PCS; 2018-06-24)
PROC: 0DBL8ZX Excision of Transverse Colon, Via Natural or Artificial Opening Endoscopic, Diagnostic (ICD-10-PCS; 2018-06-24)
DX: K25.0 Acute gastric ulcer with hemorrhage (principal); N17.0 Acute kidney failure with tubular necrosis; D62 Acute posthemorrhagic anemia; E87.2 Acidosis; I12.0 Hypertensive chronic kidney disease with stage 5 chronic kidney disease or end stage renal disease; N18.5 Chronic kidney disease, stage 5; E87.1 Hypo-osmolality and hyponatremia; L03.115 Cellulitis of right lower limb; A04.8 Other specified bacterial intestinal infections; C85.94 Non-Hodgkin lymphoma, unspecified, lymph nodes of axilla and upper limb; I25.10 Atherosclerotic heart disease of native coronary artery without angina pectoris; D50.9 Iron deficiency anemia, unspecified; E78.5 Hyperlipidemia, unspecified; I48.0 Paroxysmal atrial fibrillation; E83.39 Other disorders of phosphorus metabolism; E11.22 Type 2 diabetes mellitus with diabetic chronic kidney disease; B95.62 Methicillin resistant Staphylococcus aureus infection as the cause of diseases classified elsewhere; Z79.4 Long term (current) use of insulin; E77.8 Other disorders of glycoprotein metabolism; E83.51 Hypocalcemia; E53.8 Deficiency of other specified B group vitamins; K63.5 Polyp of colon; K64.8 Other hemorrhoids; K22.70 Barrett's esophagus without dysplasia; K44.9 Diaphragmatic hernia without obstruction or gangrene; K29.50 Unspecified chronic gastritis without bleeding; K21.0 Gastro-esophageal reflux disease with esophagitis; R59.0 Localized enlarged lymph nodes; E03.9 Hypothyroidism, unspecified; E11.21 Type 2 diabetes mellitus with diabetic nephropathy; E83.42 Hypomagnesemia; K59.03 Drug induced constipation; S80.921A Unspecified superficial injury of right lower leg, initial encounter; W22.8XXA Striking against or struck by other objects, initial encounter; K57.90 Diverticulosis of intestine, part unspecified, without perforation or abscess without bleeding; R53.81 Other malaise; M25.512 Pain in left shoulder
CPT/HCPCS: 36415; 36430; 43239; 43270; 45378; 45384; 71045; 71250; 73020; 74176; 76770; 80048; 80053; 80061; 81001; 82270; 82550; 82553; 82570; 82607; 82728; 82746; 82948; 83540; 83735; 83880; 83935; 84100; 84156; 84300; 84443; 84466; 84484; 85025; 85045; 85610; 85730; 86850; 86900; 86920; 87071; 87086; 87186; 87205; 87390; 88305; 88307; 88312; 88342; 93005; 93306; 99284; G0433; G0435; J0171; J0360; J0690; J1100; J1940; J2001; J2020; J2250; J2270; J2405; J7030; J7040; J7050; P9016; Q4081

== ENCOUNTER 2018-07-19 12:50 | Inpatient (IN) | payer BC ==
[~2018-07-19] VITALS: Ht 165.1 cm; Wt 96.6 kg
[2018-07-19] VITALS (40 sets, daily range): BP systolic 105–130; BP diastolic 60–102
[~2018-07-19 12:50] MED LIST: AMARYL2 MG PO; DOXYCYCLINE HY100 MG PO; FOLIC ACID1 MG PO; HYDRALAZINE HCL25 MG PO; LASIX40 MG PO; OMECLAMOX-PAK1 EACH; SODIUM BICARBO650 MG PO; metoprolol PO; nifedipine PO
[2018-07-19] MEDS ORDERED: SODIUM BICARBONATE 8.4% SYRING 50 ML ONE ×2 (12:54→16:37)
[2018-07-19] MEDS ORDERED: ATROPINE SULFATE 0.1 MG/ML 10ML SYR ONE ×3 (12:54→16:34)
[2018-07-19] MEDS ORDERED: DEXTROSE 50% SYRINGE 50 ML IV ONE (12:57)
[2018-07-19] MEDS ORDERED: INSULIN REGULAR, HUMAN 100 UNIT/1 ML 3ML VIAL ONE (12:58)
[2018-07-19] MEDS ORDERED: SODIUM BICARBONATE 8.4% INJ 50 ML SYR IV STA ×2 (13:06→13:07)
[2018-07-19] MEDS ORDERED: DEXTROSE 50% SYRINGE 50 ML IV STA ×2 (13:07→13:10)
[2018-07-19] MEDS ORDERED: CALCIUM CHLORIDE 10% 1.36 MEQ/ML 10ML SYR IV STA (13:10)
[2018-07-19] MEDS ORDERED: SODIUM BICARBONATE 8.4% 50 ML VIAL IV STA ×2 (13:10→13:18)
[2018-07-19] MEDS ORDERED: INSULIN REGULAR, HUMAN 100 UNIT/1 ML 3ML VIAL IV ONE ×2 (13:15)
[2018-07-19] MEDS ORDERED: SODIUM CHLORIDE 0.9% IV ONE (13:30)
[2018-07-19] MEDS ORDERED: CALCIUM CHLORIDE IV ONE (13:30)
[2018-07-19] MEDS ORDERED: FUROSEMIDE INJ 10 MG/ML 4 ML VIAL IV ONE (13:30)
[2018-07-19 13:35] LABS: BASOPHILS % 0.1 % (0.0-1.0); HEMATOCRIT 22.7 % (38.2-49.6); HEMOGLOBIN 7.2 g/dL (14.0-18.0); LYMPHOCYTES # (AUTO) 1.3 (1.0-3.2); LYMPHOCYTES % 11.7 % (18.0-39.1); MEAN CORPUSCULAR HEMOGLOBIN 26.6 pg (28-32); MEAN CORPUSCULAR HGB CONC 31.7 g/dL (31-35); MEAN CORPUSCULAR VOLUME 83.8 fL (81-99); MONOCYTES # (AUTO) 0.3 (0.2-0.8); NEUTROPHILS # (AUTO) 9.5 (2.1-6.9); NEUTROPHILS % 84.8 % (38.7-80.0); PLATELET COUNT 323 x10e3/uL (140-360); RED BLOOD COUNT 2.71 x10e6/uL (4.3-5.7); RED CELL DISTRIBUTION WIDTH 16.5 % (11.7-14.4)
[2018-07-19 13:40] LABS: INR 1.3; PROTHROMBIN TIME 15.2 seconds (11.9-14.5)
[2018-07-19 13:41] LABS: PARTIAL THROMBOPLASTIN TIME 24.1 seconds (23.8-35.5)
[2018-07-19 13:48] LABS: ALBUMIN 3.1 g/dL (3.5-5.0); ALBUMIN/GLOBULIN RATIO 0.9 (0.8-2.0); CALCIUM 7.7 mg/dL (8.4-10.2); CREATININE, SERUM 6.18 mg/dL (0.72-1.25); MAGNESIUM 1.7 MG/DL (1.3-2.1)
[2018-07-19] MEDS ORDERED: SODIUM BICARBONATE 8.4% 150 ML in DEXTROSE 5% 1,000 ML IV ONE (14:00)
[2018-07-19 14:08] LABS: CREATINE KINASE MB 4.6 ng/mL (0-5.0); THYROID STIMULATING HORMONE 10.154 uIU/mL (0.350-4.940)
--- NOTE | 2018-07-19 14:13 | Diagnostic Imaging Report ---
EXAMINATION: CHEST SINGLE (PORTABLE) INDICATION: Shortness of breath. COMPARISON: None FINDINGS: TUBES and LINES: None. LUNGS: Lungs are well inflated. Lungs are clear. There is no evidence of pneumonia or pulmonary edema. PLEURA: No pleural effusion or pneumothorax. HEART AND MEDIASTINUM: The cardiomediastinal silhouette is unremarkable. BONES AND SOFT TISSUES: No acute osseous lesion. Partially seen rotator cuff anchors overlying the right humeral head. UPPER ABDOMEN: No free air under the diaphragm. IMPRESSION: No acute thoracic abnormality. Signed by: Dr. Christiana Chow MD on 07/19/2018 2:10 PM
[2018-07-19] MEDS ORDERED: SOD POLYSTYRENE SULFONATE SUSP 15 GM/60 ML BTL PO ONE (14:30)
[2018-07-19] MEDS ORDERED: SODIUM CHLORIDE 0.9% 500ML 500 ML ONE (15:30)
[2018-07-19] MEDS ORDERED: LIDOCAINE HCL 2% LOCAL 20 ML VIAL ONE (15:30)
[2018-07-19] MEDS ORDERED: HEPARIN SOD (PORCINE) 1000 UNIT/ML 30ML ONE (15:52)
[2018-07-19] MEDS ORDERED: FENTANYL CITRATE/PF 100MCG/2 ML INJ ONE (15:53)
[2018-07-19] MEDS ORDERED: MIDAZOLAM HCL 2 MG/2 ML VIAL ONE (15:53)
[2018-07-19] MEDS ORDERED: ALBUTEROL SULF 0.083% NEB SOLN 3 ML NEB ONE (16:59)
[2018-07-19 17:01] LABS: ALBUMIN 3.3 g/dL (3.5-5.0); ALBUMIN/GLOBULIN RATIO 0.9 (0.8-2.0); ANION GAP 23.1 mmol/L (8-16); CALCIUM 8.2 mg/dL (8.4-10.2); CREATININE, SERUM 6.45 mg/dL (0.72-1.25)
[2018-07-19 17:02] LABS: POTASSIUM 7.1 mmol/L (3.5-5.1)
[2018-07-19] MEDS ORDERED: ALBUTEROL SULF 0.083% NEB SOLN 3 ML NEB NEB NR (17:02)
[2018-07-19] MEDS ORDERED: SODIUM CHLORIDE FLUSH 10 ML SYR INJ PRN (17:15)
--- NOTE | 2018-07-19 17:22 | Diagnostic Imaging Report ---
EXAMINATION: CHEST SINGLE (PORTABLE) INDICATION: \[id number] \[id number] COMPARISON: Chest radiograph 07/19/2018 at 13:17 FINDINGS: AP view TUBES and LINES: Right IJ dual lumen dialysis catheter tip projects over the right atrium. ET tube tip projects over the left mainstem bronchus. Left PICC tip projects over the left subclavian region. LUNGS: Low lung volumes with vascular crowding and bibasilar atelectasis. PLEURA: No pleural effusion or pneumothorax. HEART AND MEDIASTINUM: Cardiomediastinal silhouette is accentuated by AP technique and low lung volumes. BONES AND SOFT TISSUES: No acute osseous lesion. Soft tissues are unremarkable. UPPER ABDOMEN: No free air under the diaphragm. IMPRESSION: Lines and tubes: * ET tube tip projects over the left mainstem bronchus. * Right IJ dialysis catheter tip projects over the right atrium. * Left PICC tip projects over the left subclavian region. Low lung volumes with vascular crowding and bibasilar atelectasis. Findings discussed with Dr. Ndiaye on 07/19/2018 at 17:15 hrs. Signed by: DR. Jovan Pineda MD on 07/19/2018 5:18 PM
[2018-07-19] MEDS ORDERED: SODIUM CHLORIDE 0.9% 1000ML 0 ML ONE (17:56)
[2018-07-19] MEDS ORDERED: MANNITOL 25% 12.5GM/50ML 100 ML ONE (17:56)
[2018-07-19] MEDS ORDERED: SODIUM BICARBONATE 8.4% INJ 50 ML SYR ONE (17:57)
[2018-07-19] MEDS ORDERED: WATER STERILE 10 ML VIAL ONE (17:58)
[2018-07-19] MEDS ORDERED: ETOMIDATE 2 MG/ML 10 ML INJ IV ONE (17:58)
[2018-07-19] MEDS ORDERED: VECURONIUM BROMIDE FOR INJ 20 MG VIAL ONE (17:58)
[2018-07-19] MEDS: EPOETIN ALFA 10000 UNIT/ML VIAL SC SCH (18:00)
[2018-07-19 18:26] LABS: FERRITIN 88.68 ng/mL (21.81-274.66)
--- NOTE | 2018-07-19 18:27 | Consultation ---
DATE OF CONSULTATION: July 19, 2018 Thank you for the consultation, Dr. Wong. Mr. Hernández is a pleasant, 58-year-old male patient who is known to me from recent hospitalization in June of this year at [facility]. The patient was hospitalized for apparently lower extremity cellulitis as well as [id number] kidney disease. Upon discharge, he was felt to be stable from a renal standpoint. He is to follow up in the outpatient setting in the clinic. However, since discharge he has not been able to follow up in the clinic setting. The patient's last creatinine before discharge in the previous hospitalization was around 4 mg per dL. He was deemed chronic kidney disease stage 4 to stage 5, not requiring urgent dialysis. However, today he presented to the emergency room with generalized weakness, some shortness of breath and malaise. He was found on blood work to have very high potassium 7.0, and also elevated serum creatinine level. On blood work, was found to have a potassium of 7.0. Bicarb of only 12. BUN of 106, creatinine of 6.18. BNP elevated to 961.4. The case was discussed with the emergency room physician. Urgent stat dialysis catheter was asked to be placed by interventional radiology. The patient did get acute medical treatment for the hyperkalemia in the emergency room including calcium gluconate, IV insulin, IV D50, IV bicarb bolus as well as bicarb drip, as well as nebulized Albuterol. Stat dialysis catheter was being placed in the cardiac catheterization technician by interventional radiology. During that time period, the patient had a code arrest, was intubated. Stat dialysis catheter was placed and successfully placed in by IR. Repeat potassium was done and found to be 7.1. More bicarb was given. Bicarb drip is also running. The patient's BUN is 109, creatinine 6.45. Sodium of 132. On the most current labs, bicarb of 16. Renal consultation has been asked for to provide urgent dialysis. The patient has essentially now presenting with end-stage renal disease requiring urgent dialysis. The patient is intubated and sedated. Much of the history is obtained from the chart and previous hospitalization. PAST MEDICAL HISTORY: Hypertension, diabetes mellitus, hyperlipidemia, chronic kidney disease stage 5, now end-stage renal disease. ALLERGIES: NO KNOWN DRUG ALLERGIES. SOCIAL HISTORY: No tobacco, no alcohol use. FAMILY HISTORY: Noncontributory. REVIEW OF SYSTEMS: See HPI, otherwise all systems negative. MEDICATIONS: Reviewed per chart. PHYSICAL EXAMINATION VITAL SIGNS: Last blood pressure 95/66, pulse 57, respirations 20, afebrile. NECK: No cervical lymphadenopathy. Neck supple without masses. No elevated JVD. HEENT: Moist-appearing oral mucosa. SKIN: Moist with good skin turgor. CHEST WALL: Good expansion. No chest wall tenderness. LUNGS: Rales at the bases bilaterally. CARDIOVASCULAR: S1, S2. No obvious gallop, rub, or murmur. ABDOMEN: Soft. Positive bowel sounds. Difficult to assess tenderness. EXTREMITIES: There is 1+ to 2+ edema in the lower extremities. No clubbing and no cyanosis. NEUROLOGICAL: Difficult to assess. The patient is intubated and sedated. LABORATORY DATA: Last labs, sodium 132, potassium 7.1, chloride 100, carb 16, BUN 109, creatinine 6.45, glucose of 162, calcium 8.2. Hematology: Hemoglobin and hematocrit 7.2 and 22.7. White count 11. Platelet count 323,000. IMPRESSION AND PLAN 1. End-stage renal disease. The patient is essentially end-stage renal disease and presenting with requirement of urgent dialysis. Stat dialysis catheter has been placed. He has been transferred to ICU. Will do dialysis on a low potassium bath, 1 K bath for 3 hours. Will also give Mannitol since this will be his first treatment. Will continue to monitor potassium post dialysis as well as in the morning, and he likely will require another dialysis treatment tomorrow. Once the patient is more stabilized, he will require tunneled dialysis catheter and then he will also need outpatient dialysis placement under my care prior to discharge. 2. Hypertension/hypotension: Hold all blood pressure lowering medications since the patient's blood pressure is on the low side right now. 3. Hyperkalemia. Acute, urgent medical treatment has been done in the ER including IV insulin, IV D50, IV calcium gluconate, nebulized albuterol, bicarb boluses. The patient is also on a bicarb drip. The patient is going to have also urgent dialysis on a low potassium bath as outlined above. Repeat potassium again 3 hours post dialysis to ensure that it has come down appropriately. 4. Severe metabolic acidosis. Will correct with urgent dialysis, also given bicarb boluses and bicarb drip is also on board. 5. Profound anemia of chronic disease. Will start on Epogen. Check iron studies. Will also transfuse 2 units of packed red blood cells which will help improve his blood pressure. Thank you once again for the consultation, Dr. Wong. The case has been discussed extensively with Dr. Ndiaye in the ER. Total time spent doing this consultation is 40 minutes. Job#: [id number] cc:LUTHER WONG MD
[2018-07-19] MEDS ORDERED: MIDAZOLAM HCL 2 MG/2 ML VIAL IV NR (18:36)
[2018-07-19] MEDS ORDERED: SODIUM CHLORIDE 0.9% 250ML 250 ML IV ONE (18:45)
[2018-07-19] MEDS ORDERED: SODIUM CHLORIDE 0.9% 1000ML 2,000 ML IV PRN (19:00)
[2018-07-19] MEDS ORDERED: MANNITOL 25% 12.5GM/50 ML VIAL IV PRN (19:00)
[2018-07-19] MEDS ORDERED: SODIUM CHLORIDE 0.9% 250ML 500 ML IV PRN (19:00)
[2018-07-19] MEDS ORDERED: HEPARIN SOD (PORCINE) 1000 UNIT/ML SDV IV PRN (19:00)
[2018-07-19] MEDS ORDERED: ALBUMIN 25% 12.5GM 0.25 GM/ML BTL IV PRN (19:00)
[2018-07-19] MEDS ORDERED: FENTANYL CITRATE INJ 2,000 MCG in SODIUM CHLORIDE 0.9% 250ML 210 ML IV PRN (19:45)
[2018-07-19] MEDS ORDERED: MIDAZOLAM HCL 2 MG/2 ML VIAL IV PRN (19:45)
--- NOTE | 2018-07-19 21:06 | Consultation ---
DATE OF CONSULTATION: July 19, 2018 PULMONARY/CRITICAL CARE CONSULTATION REASON FOR THE CONSULT: ICU management. HPI: Mr. Hernández is a 58-year-old male. He was here for his dialysis catheter. Patient was in interventional radiology getting hemodialysis catheter. During that process of the procedure, the patient apparently arrested. He was given calcium gluconate IV, insulin D50, and bicarb drip. He was given calcium gluconate IV and bicarbonate bolus and insulin. Patient was hyperkalemic. Dialysis catheter was successfully placed and patient was intubated and moved to ICU. Currently, he is awake and alert, following all commands, moving all 4 extremities. He is on mechanical ventilator with the FiO2 100% and rate of 14. He has a tidal volume 450 and patient is saturating 100%. He is breathing over the vent. He is complaining of cough. Unable to elicit a detailed history from him because he is intubated. Patient is undergoing dialysis now. REVIEW OF SYSTEMS GENERAL: Denies any fever or chills. HEAD: Denies any head trauma. ENT: Denies any earache. CVS: No chest pain. RESPIRATORY: Patient is on mechanical ventilator. The rest of the review systems unable to elicit a detailed review of systems as patient is intubated. PAST MEDICAL HISTORY: Hypertension, diabetes, hyperlipidemia, chronic kidney disease, end-stage renal disease. Review of old records shows the patient has a history of gastric ulcer, paroxysmal atrial fibrillation in the past, and also had a bone marrow biopsy done by Dr. Batista for the lymphoma. FAMILY AND SOCIAL HISTORY: He is a nonsmoker, does not drink. He is on hemodialysis. PHYSICAL EXAM VITALS: Temperature 97.7, pulse of 58, blood pressure 95/66, respiratory rate of 18. HEENT: Head atraumatic, normocephalic. NECK: Supple. CHEST: Clear to auscultation bilaterally. No wheezing. HEART: S1, S2 audible. ABDOMEN: Soft, nontender. EXTREMITIES: No clubbing, cyanosis or edema. NEUROLOGIC: Awake and alert. Following commands. Responds to questions appropriately. LABS: White count of 11,000, hemoglobin 7.2, platelets 323,000. Chemistry, sodium 132, potassium 7.1, chloride 100, bicarb 16, BUN 109, creatinine 6.445. ASSESSMENT AND PLAN: A 58-year-old male, who was here for dialysis catheter, who was getting dialysis catheter placement, had a cardiac arrest. Details are not very clear; however, received bicarbonate and insulin and patient was hyperkalemic to 7.1, likely reason for her cardiac arrest. He is getting STAT hemodialysis right now. Patient was intubated; however, he is awake, alert, following all commands. CURRENT PROBLEMS 1. Status post cardiac arrest unsure likely reason hyperkalemia. Patient was pulseless. Patient was intubated while he was coding. 2. End-stage renal disease. 3. Refractory hyperkalemia. 4. Hypertension. 5. Diabetes. 6. Anemia. PLAN 1. At this point, I will continue the patient on mechanical ventilator. Will wean the FiO2 down to keep the O2 sat more than or equal to 92%. Patient is very awake and alert. Hopefully, will start weaning ventilator in the a.m. and patient possibly will be extubated. 2. Refractory hyperkalemia. Patient is getting hemodialysis per nephrology recommendations. Thank you for this consult. cc time spent 45 min Job#: [id number] GUY
[2018-07-19 21:09] LABS: ABG HCO3 28 mmol/L (23-28); ABG PCO2 39 mmHg (41-51); ABG PH 7.46 (7.31-7.41); ABG PO2 108 mmHg (80-105)
[2018-07-20] VITALS (91 sets, daily range): BP systolic 110–165; BP diastolic 68–105
[2018-07-20 03:49] LABS: BASOPHILS % 0.1 % (0.0-1.0); HEMATOCRIT 26.3 % (38.2-49.6); HEMOGLOBIN 8.5 g/dL (14.0-18.0); LYMPHOCYTES # (AUTO) 0.4 (1.0-3.2); LYMPHOCYTES % 4.5 % (18.0-39.1); MEAN CORPUSCULAR HEMOGLOBIN 26.6 pg (28-32); MEAN CORPUSCULAR HGB CONC 32.3 g/dL (31-35); MEAN CORPUSCULAR VOLUME 82.2 fL (81-99); NEUTROPHILS # (AUTO) 7.5 (2.1-6.9); PLATELET COUNT 228 x10e3/uL (140-360)
[2018-07-20 03:56] LABS: INR 1.17
[2018-07-20 03:57] LABS: PARTIAL THROMBOPLASTIN TIME 23.8 seconds (23.8-35.5)
[2018-07-20 04:01] LABS: ANION GAP 19.6 mmol/L (8-16); CALCIUM 8.4 mg/dL (8.4-10.2); CREATININE, SERUM 4.35 mg/dL (0.72-1.25); POTASSIUM 4.6 mmol/L (3.5-5.1)
[2018-07-20 04:18] LABS: MAGNESIUM 1.7 MG/DL (1.3-2.1); PHOSPHORUS 6.9 MG/DL (2.3-4.7)
[2018-07-20 04:21] LABS: CREATINE KINASE MB 3.2 ng/mL (0-5.0)
--- NOTE | 2018-07-20 06:53 | Diagnostic Imaging Report ---
EXAM: CHEST SINGLE (PORTABLE), AP 1 view INDICATION: Acute renal failure COMPARISON: AP view of the chest July 19, 2018 FINDINGS: LINES/TUBES: The endotracheal tube terminates 4 cm above the ryland. Stable position right internal jugular vein tunneled hemodialysis catheter. LUNGS: Mild vascular congestion. PLEURA: No effusions or pneumothorax. HEART AND MEDIASTINUM: Mild cardiomegaly. BONES AND SOFT TISSUES: No acute findings. IMPRESSION: Mild cardiomegaly and vascular congestion. Signed by: Dr. Concepcion Cortes M.D. on 07/20/2018 6:49 AM
[2018-07-20 11:18] LABS: ABG HCO3 31 mmol/L (23-28); ABG PCO2 39 mmHg (41-51); ABG PH 7.51 (7.31-7.41); ABG PO2 82 mmHg (80-105)
[2018-07-20] MEDS: METOPROLOL TARTRATE 25 MG TAB PO SCH (18:51)
[2018-07-21] VITALS (48 sets, daily range): BP systolic 131–190; BP diastolic 62–155
[2018-07-21] MEDS ORDERED: HYDRALAZINE HCL 20 MG/ML VIAL IV PRN (03:30)
[2018-07-21] MEDS ORDERED: NIFEDIPINE CR 30 MG TAB PO STA (03:38)
[2018-07-21 04:47] LABS: BASOPHILS % 0.1 % (0.0-1.0); EOSINOPHILS % 0.1 % (0.0-6.0); HEMATOCRIT 27.6 % (38.2-49.6); HEMOGLOBIN 8.9 g/dL (14.0-18.0); LYMPHOCYTES # (AUTO) 1.2 (1.0-3.2); LYMPHOCYTES % 12.3 % (18.0-39.1); MEAN CORPUSCULAR HEMOGLOBIN 26.8 pg (28-32); MEAN CORPUSCULAR HGB CONC 32.2 g/dL (31-35); MEAN CORPUSCULAR VOLUME 83.1 fL (81-99); MONOCYTES # (AUTO) 1.4 (0.2-0.8); NEUTROPHILS # (AUTO) 7.3 (2.1-6.9); PLATELET COUNT 220 x10e3/uL (140-360); RED BLOOD COUNT 3.32 x10e6/uL (4.3-5.7); RED CELL DISTRIBUTION WIDTH 16.2 % (11.7-14.4)
[2018-07-21 05:07] LABS: ANION GAP 18.7 mmol/L (8-16); CALCIUM 7.5 mg/dL (8.4-10.2); CREATININE, SERUM 4.73 mg/dL (0.72-1.25); MAGNESIUM 1.5 MG/DL (1.3-2.1); PHOSPHORUS 6.1 MG/DL (2.3-4.7); POTASSIUM 3.7 mmol/L (3.5-5.1)
[2018-07-21] MEDS: METOPROLOL TARTRATE 25 MG TAB PO SCH ×2 (09:33→17:33)
[2018-07-21] MEDS ORDERED: DIPHENHYDRAMINE HCL 25 MG CAP PO PRN (11:15)
[2018-07-21] MEDS: DOXYCYCLINE HYCLATE TABLET 100 MG TAB PO SCH ×2 (11:43→23:15)
[2018-07-21] MEDS: HYDRALAZINE HCL 25 MG TAB PO SCH ×2 (13:00→21:00)
[2018-07-21] MEDS: GABAPENTIN 100 MG CAP PO SCH ×2 (15:42→21:00)
[2018-07-21] MEDS: SODIUM BICARBONATE 650 MG TAB PO SCH ×2 (15:43→21:00)
[2018-07-21] MEDS ORDERED: PROPOFOL IV EMULSION 10 MG/ML 20 ML VIAL ONE (16:14)
[2018-07-21] MEDS ORDERED: SEVOFLURANE INHAL SOLN 250 ML PEN BTL ONE (16:14)
[2018-07-21] MEDS ORDERED: ONDANSETRON HCL INJ 2 MG/ML VIAL ONE (16:14)
[2018-07-21] MEDS ORDERED: LIDOCAINE HCL 2% LOCAL INJ 5 ML SDV VIAL INJ ONE (16:14)
[2018-07-21] MEDS: NIFEDIPINE CR 30 MG TAB PO SCH (17:33)
[2018-07-21] MEDS: ACETAMINOPHEN 325 MG TAB PO PRN (17:50)
[2018-07-21] MEDS ORDERED: VANCOMYCIN 1GM/NS 250 ML 250 ML IV ONE (18:00)
[2018-07-21] MEDS: CEFEPIME HCL 1 GM VIAL IV SCH (18:30)
[2018-07-21 20:36] LABS: CLARITY,URINE CLEAR (CLEAR); COLOR,URINE YELLOW (YELLOW); LEUKOCYTE ESTERASE ,URINE NEGATIVE (NEGATIVE); NITRITE,URINE NEGATIVE (NEGATIVE); PROTEIN,URINE DIPSTICK 3+ (NEGATIVE)
[2018-07-21 20:37] LABS: BILIRUBIN,URINE NEGATIVE (NEGATIVE); KETONES,URINE NEGATIVE (NEGATIVE); URINE UROBILINOGEN 0.2 mg/dL (0.2 - 1)
[2018-07-21 21:01] LABS: BACTERIA,URINE FEW /HPF; EPITHELIAL CELLS,URINE FEW /LPF; RBC,URINE >50 /HPF (0-5); WBC,URINE (MAN) 0-5 /HPF (0-5)
[2018-07-22 04:00] VITALS: BP 128/60
[2018-07-22] MEDS: CEFEPIME HCL 1 GM VIAL IV SCH ×2 (05:19→17:05)
[2018-07-22 05:31] LABS: EOSINOPHILS % 0.2 % (0.0-6.0); HEMATOCRIT 26.6 % (38.2-49.6); HEMOGLOBIN 8.5 g/dL (14.0-18.0); LYMPHOCYTES # (AUTO) 1.8 (1.0-3.2); LYMPHOCYTES % 17.1 % (18.0-39.1); MEAN CORPUSCULAR HEMOGLOBIN 26.6 pg (28-32); MEAN CORPUSCULAR VOLUME 83.4 fL (81-99); MONOCYTES # (AUTO) 1.8 (0.2-0.8); MONOCYTES % 16.6 % (4.4-11.3); NEUTROPHILS % 65.5 % (38.7-80.0); PLATELET COUNT 183 x10e3/uL (140-360); RED BLOOD COUNT 3.19 x10e6/uL (4.3-5.7); RED CELL DISTRIBUTION WIDTH 15.6 % (11.7-14.4)
[2018-07-22 05:51] LABS: ANION GAP 18.5 mmol/L (8-16); CALCIUM 7.1 mg/dL (8.4-10.2); CREATININE, SERUM 4.73 mg/dL (0.72-1.25); POTASSIUM 3.5 mmol/L (3.5-5.1)
[2018-07-22] MEDS: ACETAMINOPHEN 325 MG TAB PO PRN ×2 (06:32→15:57)
[2018-07-22 06:45] LABS: MAGNESIUM 1.3 MG/DL (1.3-2.1); PHOSPHORUS 4.8 MG/DL (2.3-4.7)
--- NOTE | 2018-07-22 07:59 | Diagnostic Imaging Report ---
EXAM: CHEST SINGLE (PORTABLE), AP 1 view INDICATION: Congestive heart failure COMPARISON: AP view of the chest July 19, 2018 FINDINGS: LINES/TUBES: Right internal jugular vein tunneled hemodialysis catheter with tip in expected location of the atriocaval junction/proximal right atrium. LUNGS: No consolidations or edema. PLEURA: No effusions or pneumothorax. HEART AND MEDIASTINUM: Normal size and contour. BONES AND SOFT TISSUES: No acute findings. IMPRESSION: No acute thoracic abnormality. Signed by: Dr. Concepcion Cortes M.D. on 07/22/2018 6:47 AM
[2018-07-22 08:20] VITALS: BP 145/66
[2018-07-22] MEDS: FOLIC ACID 1 MG TAB PO SCH (08:36)
[2018-07-22] MEDS: GABAPENTIN 100 MG CAP PO SCH ×3 (08:37→21:28)
[2018-07-22] MEDS: HYDRALAZINE HCL 25 MG TAB PO SCH ×3 (08:37→21:28)
[2018-07-22] MEDS: CLARITHROMYCIN PO SCH (08:37)
[2018-07-22] MEDS: SODIUM BICARBONATE 650 MG TAB PO SCH ×3 (08:37→21:28)
[2018-07-22] MEDS: AMOXICILLIN PO SCH (08:37)
[2018-07-22] MEDS: OMEPRAZOLE PO SCH (08:37)
[2018-07-22] MEDS: METOPROLOL TARTRATE 25 MG TAB PO SCH ×2 (09:00→17:05)
[2018-07-22] MEDS: NIFEDIPINE CR 30 MG TAB PO SCH ×2 (09:00→17:05)
[2018-07-22] MEDS ORDERED: GLIMEPIRIDE 2 MG TAB PO SCH (09:00)
[2018-07-22 09:04] LABS: EOSINOPHILS % (MANUAL) 1 % (0-7); LYMPHOCYTES % (MANUAL) 15 % (19-48); MONOCYTES % (MANUAL) 10 % (3.4-9.0); MYELOCYTES % (MANUAL) 1 % (0-0); NEUTROPHILS % (MANUAL) 73 % (40-74)
[2018-07-22 09:05] LABS: ANISOCYTOSIS SLIGHT; HYPOCHROMASIA MODERATE; MICROCYTOSIS SLIGHT; PLATELET ESTIMATE ADEQUATE; PLATELET MORPHOLOGY COMMENT NORMAL; RBC MORPHOLOGY COMMENT NORMAL
[2018-07-22] MEDS: DOXYCYCLINE HYCLATE TABLET 100 MG TAB PO SCH ×2 (09:23→23:30)
[2018-07-22 10:36] VITALS: BP 145/66
[2018-07-22 12:19] VITALS: BP 157/84
[2018-07-22] MEDS: FUROSEMIDE 40 MG TAB PO SCH (12:53)
--- NOTE | 2018-07-22 13:52 | Progress Note ---
DATE: INTERNAL MEDICINE PROGRESS NOTE SUBJECTIVE: This is a 58-year-old male who had a cardiorespiratory arrest. He was extubated. He is doing better right now. PHYSICAL EXAM VITAL SIGNS: Blood pressure 157/84. Temperature 97.0 degrees Fahrenheit. Heart rate 90 per minute. Respiratory rate 18 per minute. Oxygen saturation 98%. HEART: Regular rhythm. Normal S1, S2 sounds. LUNGS: Clear bilaterally. ABDOMEN: Soft. EXTREMITIES: Showed 2+ bilateral pedal edema. LABS: On the BMP, sodium 139, potassium 3.5, chloride 97, CO2 27, BUN 70, creatinine 4.73, glucose 92. The CBC showed white blood count 10.7, hemoglobin 8.5, hematocrit 26.6, platelet count 193,000. PT 14.0, INR 1.17, PTT 23.8. AST 18, ALT 23, total bilirubin 0.5, alkaline phosphatase 62. FINAL IMPRESSION 1. Uncontrolled diabetes mellitus, type 2, with diabetic nephropathy. 2. Uncontrolled hypertension with hypertensive nephropathy. 3. End-stage renal disease on dialysis. 4. Anemia of chronic disease secondary to chronic renal insufficiency. 5. Status post cardiac arrest. 6. Diabetic neuropathy. PLAN OF TREATMENT 1. Continue with dialysis Sunday, Sunday and Sunday. 2. Continue Epogen 10,000 units Sunday, Sunday, and Sunday for anemia of chronic disease. 3. Continue metoprolol 25 mg twice a day. 4. Folic acid 1 mg daily. 5. Hydralazine 50 mg 3 times a day. 6. Cefepime 1 gram IV twice a day. 7. Hydralazine 10 mg q.6 h. 8. Furosemide 40 mg daily. 9. Tylenol 650 mg q.6 h. as needed. 10. Doxycycline 100 mg twice a day. 11. Glimepiride 2 mg daily. 12. Sodium bicarbonate 650 mg 3 times a day. 13. Continue Benadryl 25 mg at bedtime. 14. Gabapentin 200 mg 3 times a day. 15. Nifedipine 60 mg twice a day. 16. Blood cultures have been done, and the report is pending. 17. The patient is doing better. Job#: [id number]
[2018-07-22 16:06] VITALS: BP 151/70
[2018-07-22] MEDS ORDERED: DEXTROSE 50% SYRINGE 50 ML IV ONE (16:54)
[2018-07-22] MEDS ORDERED: DEXTROSE 50% SYRINGE 50 ML IV STA (16:57)
[2018-07-22] MEDS: EPOETIN ALFA 10000 UNIT/ML VIAL SC SCH (17:05)
[2018-07-22 20:00] VITALS: BP 160/85
[2018-07-23] VITALS (9 sets, daily range): BP systolic 110–195; BP diastolic 60–78
[2018-07-23] MEDS: DEXTROSE 50% SYRINGE 50 ML IV PRN ×5 (00:20→17:27)
[2018-07-23 05:25] LABS: BASOPHILS % 0.1 % (0.0-1.0); EOSINOPHILS # (AUTO) 0.1 (0.0-0.4); EOSINOPHILS % 0.9 % (0.0-6.0); HEMATOCRIT 29.3 % (38.2-49.6); HEMOGLOBIN 9.3 g/dL (14.0-18.0); LYMPHOCYTES # (AUTO) 1.9 (1.0-3.2); LYMPHOCYTES % 15.7 % (18.0-39.1); MEAN CORPUSCULAR HEMOGLOBIN 26.3 pg (28-32); MEAN CORPUSCULAR HGB CONC 31.7 g/dL (31-35); MONOCYTES # (AUTO) 2.1 (0.2-0.8); NEUTROPHILS # (AUTO) 8.1 (2.1-6.9); NEUTROPHILS % 65.7 % (38.7-80.0); PLATELET COUNT 203 x10e3/uL (140-360); RED BLOOD COUNT 3.53 x10e6/uL (4.3-5.7); RED CELL DISTRIBUTION WIDTH 15.4 % (11.7-14.4)
[2018-07-23 05:43] LABS: ANION GAP 16.6 mmol/L (8-16); CALCIUM 7.7 mg/dL (8.4-10.2); CREATININE, SERUM 3.34 mg/dL (0.72-1.25); POTASSIUM 3.6 mmol/L (3.5-5.1)
[2018-07-23 05:56] LABS: MAGNESIUM 1.7 MG/DL (1.3-2.1); PHOSPHORUS 4.2 MG/DL (2.3-4.7)
[2018-07-23] MEDS: CEFEPIME HCL 1 GM VIAL IV SCH ×2 (06:53→17:27)
[2018-07-23 07:18] LABS: EOSINOPHILS % (MANUAL) 1 % (0-7); LYMPHOCYTES % (MANUAL) 17 % (19-48); MONOCYTES % (MANUAL) 14 % (3.4-9.0); NEUTROPHILS % (MANUAL) 68 % (40-74)
[2018-07-23 07:19] LABS: ANISOCYTOSIS SLIGHT; HYPOCHROMASIA SLIGHT; PLATELET ESTIMATE ADEQUATE; PLATELET MORPHOLOGY COMMENT NORMAL; RBC MORPHOLOGY COMMENT NORMAL
--- NOTE | 2018-07-23 07:44 | Diagnostic Imaging Report ---
PROCEDURE: PLACEMENT OF RIGHT IJ TUNNELED HEMODIALYSIS CATHETER INDICATION: Need for dialysis. OPERATORS: Christiana Chow MD RADIATION EXPOSURE: Fluoroscopy Time: 0.9 min, Dose: 217.8 cGycm2 CONSENT: The patient was informed of the nature of the proposed procedure. The purposes, alternatives, risks, and benefits were explained and discussed. All questions were answered and written consent was obtained. ANESTHESIA: Local MEDICATIONS: 15 cc of 1% subcutaneous lidocaine TECHNIQUE: The patient was brought to the angiography suite, and the right neck and upper chest were prepped and draped in standard sterile fashion. All elements of maximal sterile barrier technique were followed including cap and mask, sterile gown, sterile gloves, large sterile sheet, hand hygiene and Betadine for cutaneous antisepsis. Pre-procedure time-out confirmed the patient identity and the procedure to be performed. Using standard sterile technique, 1 % lidocaine was administered subcutaneously for local anesthesia. Ultrasound demonstrated that the right internal jugular was patent and compressible. Under continuous sonographic guidance, the right internal jugular vein was accessed using a 21 G micropuncture needle. The access needle was exchanged for a 5 Fr micropuncture sheath. An 0.035 inch Amplatz wire was navigated to the proximal right atrium. The venotomy site was sequentially dilated using 8 Fr to 14 Fr dilators. Appropriate measurements were made using the dilator. Attention was then turned towards the subcutaneous tunnel. After administration of 1% lidocaine subcutaneously for local anesthesia, a 16 Fr x 23 cm Hemosplit hemodialysis catheter was tunneled in an antegrade direction from skin exit site to venotomy site. The dilator was exchanged for the peel-away sheath under direct fluoroscopic visualization. The catheter was then advanced through the peel-away sheath into the superior vena cava. After confirming appropriate position with fluoroscopy the catheter tip in the proximal right atrium, the peel-away sheath was removed, and both lumens aspirated, check flushed, and terminally flushed with 1.9 cc of heparin solution (1000 units/cc) in each lumen. The catheter was secured using 3-0 Ethilon pursestring suture at the catheter exit site and also 3-0 Ethilon sutures at the catheter hub. A single subcutaneous Vicryl suture was placed at the venotomy site. Sterile bandages were placed. Of note, patient was hyperkalemic to the 7 in the ED and was treated with calcium gluconate, IV insulin/D50, IV bicarbonate bolus as well as drip, and nebulized albuterol pre procedurally. During the procedure, patient had episodes of bradycardia to the 40s. Intra-procedurally, he received two doses of Atropine IV 0.5 mg sequentially with no increase of heart rate. Immediately post procedurally, he had an episode of cardiopulmonary arrest with pulseless electrical activity, please see below for further details. FINDINGS: 1. Patent and compressible right IJV accessed with continuous ultrasound guidance. 2. Placement of 16 Fr x 23 cm tunneled right IJV hemodialysis catheter. 3. Post-procedure intraprocedural chest radiograph showed catheter tip in right atrium, no kinks along course of catheter, and no pneumothorax. 4. Patient had an episode of cardiopulmonary arrest (pulseless electrical activity) immediately post procedurally attributed to his hyperkalemia with K>7, code was called. CPR was initiated, with a total of six rounds of 30 chest compressions and bag mask breathing performed, and calcium gluconate administered. Please refer to rapid response note for further details. IMPRESSION: Placement of right IJ tunneled hemodialysis catheter. Catheter is ready for immediate use. Please refer to electronic medical record rapid response note for further details of patient's cardiopulmonary arrest attributable to hyperkalemia. Signed by: Dr. Christiana Chow MD on 07/23/2018 7:41 AM
[2018-07-23] MEDS: HYDRALAZINE HCL 25 MG TAB PO SCH ×3 (08:58→17:27)
[2018-07-23] MEDS: OMEPRAZOLE PO SCH (08:58)
[2018-07-23] MEDS: FOLIC ACID 1 MG TAB PO SCH (08:58)
[2018-07-23] MEDS: FUROSEMIDE 40 MG TAB PO SCH (08:58)
[2018-07-23] MEDS: CLARITHROMYCIN PO SCH (08:58)
[2018-07-23] MEDS: GABAPENTIN 100 MG CAP PO SCH ×3 (08:58→20:54)
[2018-07-23] MEDS: AMOXICILLIN PO SCH (08:58)
[2018-07-23] MEDS: METOPROLOL TARTRATE 25 MG TAB PO SCH ×2 (08:58→17:26)
[2018-07-23] MEDS: NIFEDIPINE CR 30 MG TAB PO SCH ×2 (08:59→17:27)
[2018-07-23] MEDS: DOXYCYCLINE HYCLATE TABLET 100 MG TAB PO SCH ×2 (08:59→23:49)
[2018-07-23] MEDS: SODIUM BICARBONATE 650 MG TAB PO SCH ×3 (08:59→20:54)
[2018-07-23] MEDS ORDERED: LABETALOL HCL 5 MG/ML 20ML VIAL IV PRN (11:15)
--- NOTE | 2018-07-23 12:19 | Progress Note ---
DATE: INTERNAL MEDICINE PROGRESS NOTE SUBJECTIVE: Patient is doing better now. He had an episode of hypoglycemia this morning. We started glimepiride. Blood sugar is 101 right now. PHYSICAL EXAM VITAL SIGNS: Blood pressure 190/78 temperature 95.6, heart rate 86 per minute, respiratory rate is 20 per minute, oxygen saturation 98%. HEART: Regular rhythm. Normal S1, S2 sounds. LUNGS: Clear bilaterally. ABDOMEN: Soft. EXTREMITIES: Show 2+ bilateral pedal edema. LABORATORY DATA: On the BMP, sodium 132, potassium 3.6, chloride 97, CO2 of 22, BUN 42, creatinine 3.34, and glucose 44. CBC showed white blood count 12,300, hemoglobin 9.3, hematocrit 29.3, and platelet count 203,000. PT 14.0, INR 1.07, and PTT 23.8. AST 18, ALT 23, total bilirubin 0.5, alkaline phosphatase 62. FINAL IMPRESSION 1. Accelerated hypertension with hypertensive nephropathy. 2. End-stage renal disease, on dialysis. 3. Metabolic acidosis secondary to end-stage renal disease. 4. Anemia of chronic disease. 5. Diabetes mellitus type 2 with end-stage renal disease, status post hypoglycemia. PLAN OF TREATMENT: We are going to continue dialysis 3 times a week. Continue physical and occupational therapy. The patient has difficulty walking, we are going to get an inpatient rehab facility referral to see if the patient can be approved by the insurance company to go there and see if the patient had a tendency to fall. We are going to hold on the glimepiride. Continue monitoring blood sugar q.6 hours. Continue metoprolol 25 mg twice a day. Continue with hydralazine 10 mg IV q.4 hours as needed for hypertension. I increased his hydralazine 50 mg to 50 mg p.o. q.6 hours. He is on furosemide 40 mg daily and sodium bicarbonate 350 mg 3 times a day. Continue doxycycline 100 mg twice a day. Continue nifedipine 60 mg twice a day. Continue gabapentin 200 mg 3 times a day and cefepime 1 gram IV twice a day. Job#: [id number] DKA
--- NOTE | 2018-07-23 12:50 | Progress Note ---
DATE: July 23, 2018 RENAL PROGRESS NOTE SUBJECTIVE: Followed for end-stage renal disease, tolerating dialysis on Sunday, Sunday, and Sunday. Has a tunneled dialysis catheter in place. Next dialysis treatment will be tomorrow. No nausea, no vomiting, no shortness of breath. Patient is getting physical therapy as well. OBJECTIVE VITAL SIGNS: Have been noted and are stable. LUNGS: Clear to auscultation bilaterally. CARDIOVASCULAR: S1, S2. No rub. ABDOMEN: Soft, nontender. EXTREMITIES: No edema. LABORATORY DATA: Labs have been reviewed. IMPRESSION AND PLAN 1. End-stage renal disease. Continue dialysis on Sunday, Sunday, and Sunday. Await outpatient dialysis placement. 2. Hypertension. Blood pressure is currently stable and controlled. 3. Anemia of chronic disease, stable. We will continue to monitor. 4. Hyperkalemia has resolved with the dialysis. Job#: [id number] VAS
[2018-07-23] MEDS: DEXTROSE 10% 1,000 ML IV SCH (13:23)
[2018-07-23] MEDS ORDERED: LORAZEPAM 0.5 MG TAB PO PRN (16:30)
--- NOTE | 2018-07-23 17:22 | Consultation ---
DATE OF CONSULTATION: July 23, 2018 REASON FOR CONSULTATION: For treatment and evaluation of the patient's mood and anxiety. HISTORY OF PRESENT ILLNESS: The patient is a 58-year-old male who is admitted to inpatient medical hospital because of multiple medical problems. Psychiatric consult is called to evaluate the patient's mood and anxiety during his inpatient stay. Upon evaluation today, the patient said that he has been feeling depressed and anxious because of his ongoing medical health issues. Before coming to the hospital, he passed out, and he is concerned that he is not going to do better. The patient is feeling slightly better now. He denies feeling hopeless and helpless. He claims that he is unable to sleep very well . He denies any hallucinations and/or suicidal ideations. The patient does report that he was using alcohol heavily, but now he is planning to stay sober. In fact, he quit alcohol a few weeks ago. Correlated information is obtained from his daughter who was present in the room during this assessment. She also reported that the patient is stressed and anxious because of his ongoing medical health issues, but he is not suicidal and he is not psychotic. PAST PSYCHIATRIC HISTORY: The patient denies any history of psychiatric illness in the past. He used to drink alcohol and smoke marijuana, but he has quit using drugs and alcohol after he got a DWI recently. He has never attempted any suicide. FAMILY HISTORY: The patient denies any family history of psychiatric illness. SOCIAL HISTORY: The patient lives with his parents. CURRENT LABS: WBC 12.3, hemoglobin 9.3, hematocrit 29.3, platelets 203,000, sodium 132, potassium 3.6, chloride 97, carbon dioxide 22, BUN 42, creatinine 3.34. CURRENT MEDICATIONS: 1. Doxycycline. 2. Folic acid. 3. Lasix. 4. Gabapentin 200 mg p.o. t.i.d. 5. Hydralazine. 6. Metoprolol. 7. Nifedipine. MENTAL STATUS EXAMINATION: The patient is a middle-aged male who is currently lying on his bed. He is calm and cooperative. His mood is anxious with appropriate affect. He denies any suicidal or homicidal ideation at present. He denies any abnormal perception at present, no delusions are elicited. His thought process is goal directed. His insight and judgment are fair. IMPRESSION: AXIS I: 1. Adjustment disorder with mixed mood depression and anxiety. 2. Alcohol abuse. PLAN: 1. Add Wellbutrin 75 mg p.o. b.i.d. 2. Add Ativan 0.5 mg p.o. t.i.d. p.r.n. for anxiety. 3. Recommend total abstinence from alcohol and drugs. Thank you very much for this consult. Job#: [id number] TITA
[2018-07-23] MEDS: BUPROPION HCL 75 MG TAB PO SCH (17:27)
[2018-07-24] MEDS: HYDRALAZINE HCL 25 MG TAB PO SCH ×4 (00:46→20:58)
[2018-07-24 03:28] VITALS: BP 118/64
[2018-07-24 05:08] LABS: BASOPHILS % 0.2 % (0.0-1.0); EOSINOPHILS # (AUTO) 0.3 (0.0-0.4); EOSINOPHILS % 3.1 % (0.0-6.0); HEMATOCRIT 26.6 % (38.2-49.6); HEMOGLOBIN 8.6 g/dL (14.0-18.0); LYMPHOCYTES # (AUTO) 1.7 (1.0-3.2); LYMPHOCYTES % 18.5 % (18.0-39.1); MEAN CORPUSCULAR HEMOGLOBIN 26.5 pg (28-32); MEAN CORPUSCULAR HGB CONC 32.3 g/dL (31-35); MEAN CORPUSCULAR VOLUME 82.1 fL (81-99); MONOCYTES # (AUTO) 1.4 (0.2-0.8); MONOCYTES % 16.2 % (4.4-11.3); NEUTROPHILS # (AUTO) 5.4 (2.1-6.9); NEUTROPHILS % 61.1 % (38.7-80.0); PLATELET COUNT 179 x10e3/uL (140-360); RED BLOOD COUNT 3.24 x10e6/uL (4.3-5.7); RED CELL DISTRIBUTION WIDTH 15.3 % (11.7-14.4)
[2018-07-24 05:22] LABS: ANION GAP 13.8 mmol/L (8-16); CALCIUM 7.1 mg/dL (8.4-10.2); CREATININE, SERUM 3.8 mg/dL (0.72-1.25); PHOSPHORUS 3.9 MG/DL (2.3-4.7); POTASSIUM 3.8 mmol/L (3.5-5.1)
[2018-07-24 05:45] LABS: MAGNESIUM 1.1 MG/DL (1.3-2.1)
[2018-07-24] MEDS: CEFEPIME HCL 1 GM VIAL IV SCH ×2 (06:42→17:34)
[2018-07-24 08:00] VITALS: BP 129/70
[2018-07-24] MEDS ORDERED: MAGNESIUM SULFATE 2GM/50ML 50 ML IV ONE ×3 (08:00→12:00)
[2018-07-24] MEDS: AMOXICILLIN PO SCH (09:00)
[2018-07-24] MEDS: GABAPENTIN 100 MG CAP PO SCH ×3 (09:00→20:53)
[2018-07-24] MEDS: OMEPRAZOLE PO SCH (09:00)
[2018-07-24] MEDS: NIFEDIPINE CR 30 MG TAB PO SCH ×2 (09:00→16:34)
[2018-07-24] MEDS: CLARITHROMYCIN PO SCH (09:00)
[2018-07-24] MEDS: METOPROLOL TARTRATE 25 MG TAB PO SCH ×2 (09:00→16:34)
[2018-07-24] MEDS: FOLIC ACID 1 MG TAB PO SCH (09:22)
[2018-07-24] MEDS: FUROSEMIDE 40 MG TAB PO SCH (09:22)
[2018-07-24] MEDS: BUPROPION HCL 75 MG TAB PO SCH ×2 (09:23→16:37)
[2018-07-24] MEDS: SODIUM BICARBONATE 650 MG TAB PO SCH ×3 (09:23→20:53)
[2018-07-24 12:00] VITALS: BP 138/79
[2018-07-24] MEDS: DOXYCYCLINE HYCLATE TABLET 100 MG TAB PO SCH ×2 (13:00→21:36)
[2018-07-24] MEDS: DEXTROSE 10% 1,000 ML IV SCH (13:29)
--- NOTE | 2018-07-24 13:48 | Progress Note ---
DATE: July 24, 2018 PSYCHIATRIC PROGRESS NOTE INTERVAL HISTORY: Patient evaluated and events noted. Upon evaluation today, the patient is found to be lying on his bed. He is alert, awake and oriented to situation. He is calm and cooperative. He is less anxious. He denies feeling depressed. He denies any hallucinations and/or any suicidal ideations. He is taking his medications and denies any side effects from his medications. DIAGNOSIS: Adjustment disorder with mixed mood/alcohol abuse. PLAN 1. Continue Wellbutrin 75 mg p.o. b.i.d. 2. Continue p.r.n. Ativan. 3. Supportive therapy during his inpatient stay. Job#: [id number]
--- NOTE | 2018-07-24 15:53 | Progress Note ---
DATE: July 24, 2018 RENAL PROGRESS NOTE SUBJECTIVE: Followed for end-stage renal disease. Patient is tolerating dialysis without problems. No nausea, no vomiting, no shortness of breath. Does have lower extremity edema. OBJECTIVE VITAL SIGNS: Have been noted per dialysis treatment sheet. LUNGS: Clear to auscultation bilaterally. CARDIOVASCULAR: S1 and S2. No rub. ABDOMEN: Soft, nontender. EXTREMITIES: 2+ edema. LABS: Have been reviewed. IMPRESSION AND PLAN 1. End-stage renal disease. Will continue dialysis today and Sunday/Sunday/Sunday. Will also do dialysis tomorrow for ultrafiltration only since the patient appears to be volume-overloaded. Will also start him on oral Lasix if he is already not on it. 2. Hypertension. Blood pressure is stable. 3. Volume overload. Will continue to ultrafilter with dialysis. 4. Hyponatremia secondary to volume overload. Will ultrafiltrate with dialysis. Will also start on Lasix if he is already not on it. Thank you once again. Job#: [id number] EV
[2018-07-24 16:00] VITALS: BP 130/74
[2018-07-24] MEDS: EPOETIN ALFA 10000 UNIT/ML VIAL SC SCH (17:55)
--- NOTE | 2018-07-24 20:12 | Progress Note ---
DATE: INTERNAL MEDICINE PROGRESS NOTE SUBJECTIVE: Patient is doing well. No significant complaints today. PHYSICAL EXAM VITAL SIGNS: Blood pressure 130/74. Temperature 98.4. Heart rate 96 per minute. Respiratory rate is 18 per minute. Oxygen saturation 96%. BLOOD WORK: We have BMP, sodium 134, potassium 3.8, chloride 91, CO2 23, BUN 49, creatinine 3.80, glucose 56. CBC: White blood count 8.91, hemoglobin 8.6, hematocrit 26.6, platelet count 179,000. PT 14.0, INR 1.17, PTT 23.8. AST 18, ALT 23, total bilirubin 0.5, alkaline phosphatase 62. FINAL IMPRESSION 1. End-stage disease, on dialysis. 2. Uncontrolled diabetes mellitus type 2 with end-stage renal disease, status post hypoglycemia. 3. Anemia of chronic disease. 4. Hypertension with hypertensive nephropathy. 5. Metabolic acidosis secondary to end-stage renal disease. PLAN OF TREATMENT: We are going to continue renal diabetic diet. Patient is going to get education about that. We have discontinued the glimepiride because of the episode of hypoglycemia. The blood sugar now is getting closer to normal. He has D50 IV push as needed for blood sugar less than 60. We have discontinued IV fluids for now. Continue Epogen 10,000 units Sunday, Sunday and Sunday; metoprolol 25 mg twice a day; furosemide 40 mg daily; nifedipine 60 mg twice a day; labetalol 5 mg IV q.6 h. as needed for hypertension; doxycycline 100 mg twice a day; gabapentin 200 mg 3 times a day; cefepime 1 g IV twice a day; bupropion 75 mg twice a day. Continue Benadryl 25 mg at bedtime, Tylenol 650 mg q.6 h. as needed, lorazepam 0.5 mg 3 times a day, folic acid 1 mg daily, sodium bicarbonate 650 mg 3 times a day, hydralazine 50 mg q.8 h. Renal diabetic diet is what he is supposed to have. Continue monitoring blood sugar q.4 h. D50 IV push as needed for blood sugar less than 60. Continue physical/occupational therapy. Job#: [id number]
[2018-07-24] MEDS: ACETAMINOPHEN 325 MG TAB PO PRN (20:54)
[2018-07-24 21:15] VITALS: BP 144/82
[2018-07-24 21:16] VITALS: BP 144/82
[2018-07-25] VITALS: BP 132/72
[2018-07-25 04:02] VITALS: BP 130/70
[2018-07-25 05:16] LABS: BASOPHILS % 0.3 % (0.0-1.0); EOSINOPHILS # (AUTO) 0.3 (0.0-0.4); EOSINOPHILS % 3.9 % (0.0-6.0); HEMATOCRIT 27.7 % (38.2-49.6); HEMOGLOBIN 8.8 g/dL (14.0-18.0); LYMPHOCYTES # (AUTO) 1.5 (1.0-3.2); MEAN CORPUSCULAR HEMOGLOBIN 26.4 pg (28-32); MEAN CORPUSCULAR HGB CONC 31.8 g/dL (31-35); MEAN CORPUSCULAR VOLUME 83.2 fL (81-99); MONOCYTES # (AUTO) 1.4 (0.2-0.8); MONOCYTES % 19.6 % (4.4-11.3); NEUTROPHILS # (AUTO) 3.7 (2.1-6.9); NEUTROPHILS % 53.3 % (38.7-80.0); PLATELET COUNT 217 x10e3/uL (140-360); RED BLOOD COUNT 3.33 x10e6/uL (4.3-5.7); RED CELL DISTRIBUTION WIDTH 15.1 % (11.7-14.4)
[2018-07-25] MEDS: HYDRALAZINE HCL 25 MG TAB PO SCH ×3 (05:25→21:10)
[2018-07-25] MEDS: CEFEPIME HCL 1 GM VIAL IV SCH ×2 (05:29→17:06)
[2018-07-25 05:40] LABS: ANION GAP 13.1 mmol/L (8-16); CREATININE, SERUM 2.89 mg/dL (0.72-1.25); POTASSIUM 4.1 mmol/L (3.5-5.1)
[2018-07-25 08:00] VITALS: BP 147/86
[2018-07-25] MEDS: FOLIC ACID 1 MG TAB PO SCH (08:40)
[2018-07-25] MEDS: SODIUM BICARBONATE 650 MG TAB PO SCH ×3 (08:41→20:33)
[2018-07-25] MEDS: NIFEDIPINE CR 30 MG TAB PO SCH ×2 (08:41→16:52)
[2018-07-25] MEDS: CLARITHROMYCIN PO SCH (08:41)
[2018-07-25] MEDS: FUROSEMIDE 40 MG TAB PO SCH (08:41)
[2018-07-25] MEDS: OMEPRAZOLE PO SCH (08:41)
[2018-07-25] MEDS: GABAPENTIN 100 MG CAP PO SCH ×3 (08:41→20:33)
[2018-07-25] MEDS: BUPROPION HCL 75 MG TAB PO SCH ×2 (08:41→16:52)
[2018-07-25] MEDS: AMOXICILLIN PO SCH (08:41)
[2018-07-25] MEDS: METOPROLOL TARTRATE 25 MG TAB PO SCH ×2 (08:41→16:52)
[2018-07-25] MEDS: DOXYCYCLINE HYCLATE TABLET 100 MG TAB PO SCH ×2 (11:19→22:26)
[2018-07-25 12:00] VITALS: BP 172/89
--- NOTE | 2018-07-25 12:29 | Progress Note ---
DATE: July 25, 2018 RENAL PROGRESS NOTE SUBJECTIVE: Followed for end-stage renal disease, tolerating dialysis for ultrafiltration only today. Patient's sodium is better at 132 after fluid was pulled yesterday. Patient still requires more ultrafiltration today. No nausea, no vomiting, no shortness of breath. OBJECTIVE VITAL SIGNS: Have been noted. Blood pressure is 147/86, pulse 75. Afebrile. LUNGS: Minimal rales at the bases bilaterally. CARDIOVASCULAR: S1 and S2. No rub. ABDOMEN: Soft, nontender. EXTREMITIES: 1 to 2+ edema. LABS: Sodium 132, potassium 4.1, BUN 35, creatinine is 2.9. IMPRESSION AND PLAN 1. End-stage renal disease. We will continue dialysis for ultrafiltration only today and then place him on his Sunday, Sunday, and Sunday schedule. We will arrange for an outpatient dialysis chair time, and we will also ask Dr. Jeffrey to see the patient for arteriovenous fistula placement. 2. Hypertension. Blood pressure is better controlled. 3. Anemia of chronic disease, stable hemoglobin and hematocrit. Continue to monitor. 4. Fluid overload improving with dialysis. 5. Hyponatremia also improving with ultrafiltration with dialysis. Thank you once again. Job#: [id number] VAS
--- NOTE | 2018-07-25 12:56 | Progress Note ---
DATE: INTERNAL MEDICINE PROGRESS NOTE SUBJECTIVE: He is doing well. No significant complaints. Blood sugar is much more stable right now. PHYSICAL EXAM: VITAL SIGNS: Blood pressure 147/86. Temperature 98.8 degrees Fahrenheit. Heart rate is 75 per minute. Respiratory rate 18 per minute. Oxygen saturation 98%. HEART: Shows regular rhythm. Normal S1 and S2 sounds. LUNGS: Clear bilaterally. ABDOMEN: Soft. EXTREMITIES: Show no evidence of cyanosis, but he does have 2+ pedal edema. BLOOD WORK: We have a BMP: Sodium 132, potassium 4.1, chloride 97, CO2 26, BUN 35, creatinine 2.89, glucose 98. On the CBC: White blood count 6.99, hemoglobin 8.8, hematocrit 27.7, platelet count 217,000. PT 14.0, PTT 23.8, INR 1.17. AST 18, ALT 23, total bilirubin 0.5, alkaline phosphatase 62. FINAL IMPRESSION: 1. End-stage renal disease on dialysis. He is going to go for a fistula placement. 2. Anemia of chronic disease secondary to end-stage renal disease. 3. Hypertension with hypertensive nephropathy. 4. Difficulty walking with an unsteady gait. 5. Diabetes mellitus type 2 with end-stage renal disease, status post hypoglycemia. PLAN OF TREATMENT: Continue monitoring blood sugar a.c. and nightly. Blood sugar is better now. He has no more episodes of hypoglycemia. We have discontinued glimepiride. He is on Epogen 10,000 units Sunday, Sunday and Sunday for anemia of chronic disease. Metoprolol 25 mg twice a day. Furosemide 40 mg daily. Nifedipine 60 mg twice a day. Labetalol 5 mg IV q.6 hours. Doxycycline 100 mg IV twice a day. Gabapentin 200 mg 3 times a day. Cefepime 1 gram IV twice a day. Bupropion 75 mg twice a day. Continue with lorazepam 0.5 mg 3 times a day. Tylenol 650 mg q.6 hours as needed. Heparin 5000 units as needed. Folic acid 1 mg daily. Sodium bicarbonate 650 mg 3 times a day. Hydralazine 50 mg q.8 hours. Continue physical and occupational therapy. The patient has had a tendency to fall. We are going to refer him to inpatient rehab. In the meantime, he is going to get an arteriovenous graft placement by Dr. Sheppard, surgeon, and continue physical and occupational therapy. Continue diabetic and renal diet. Job#: [id number] EV
--- NOTE | 2018-07-25 16:51 | Consultation ---
DATE OF CONSULTATION: July 25, 2018 SURGERY CONSULTATION REFERRING PHYSICIANS: Dr. Roldan and Dr. Blackman. HISTORY OF PRESENT ILLNESS: Patient is a 58-year-old male who has been found to have end-stage renal disease. He has been initiated on hemodialysis and needs access for long-term hemodialysis. PAST MEDICAL HISTORY: Significant for hypertension, diabetes, hyperlipidemia, end-stage renal disease. ALLERGIES: HE HAS NO KNOWN ALLERGIES. MEDICATIONS: Listed in the chart. PREVIOUS SURGERIES: Not available. FAMILY HISTORY: Noncontributory. SOCIAL HISTORY: The patient does not smoke cigarettes or drink alcohol. REVIEW OF SYSTEMS: As stated above, otherwise was negative. PHYSICAL EXAMINATION: GENERAL: The patient is awake and alert. VITAL SIGNS: Normal. HEENT: Reveals no scleral icterus. NECK: Has no masses. LUNGS: Equal breath sounds are clear bilaterally. CARDIAC: Regular rate and rhythm. There is a dialysis catheter exiting the right chest. ABDOMEN: Soft without tenderness. EXTREMITIES: Warm. Peripheral pulses are palpable 2+ in the upper extremities. There appear to be adequate veins for primary fistula. ASSESSMENT: A 58-year-old male, end-stage renal disease, needs access for long-term hemodialysis. Plan a left arm arteriovenous fistula. Procedure was explained to the patient including risks, benefits and alternatives. He understands the procedure. He has had the opportunity to ask questions. Thank you for asking me to see Mr. Hernández. Job#: [id number] EV
[2018-07-25 20:28] VITALS: BP 166/92
[2018-07-25] MEDS: ACETAMINOPHEN 325 MG TAB PO PRN (20:33)
[2018-07-25 20:36] VITALS: BP 166/92
[2018-07-26] VITALS (35 sets, daily range): BP systolic 129–197; BP diastolic 72–109
[2018-07-26 05:00] LABS: BASOPHILS % 0.4 % (0.0-1.0); EOSINOPHILS # (AUTO) 0.3 (0.0-0.4); EOSINOPHILS % 4.7 % (0.0-6.0); HEMATOCRIT 29.3 % (38.2-49.6); HEMOGLOBIN 9.3 g/dL (14.0-18.0); LYMPHOCYTES # (AUTO) 1.3 (1.0-3.2); LYMPHOCYTES % 23.3 % (18.0-39.1); MEAN CORPUSCULAR HEMOGLOBIN 26.6 pg (28-32); MEAN CORPUSCULAR HGB CONC 31.7 g/dL (31-35); MEAN CORPUSCULAR VOLUME 83.7 fL (81-99); MONOCYTES % 17.2 % (4.4-11.3); NEUTROPHILS % 52.8 % (38.7-80.0); PLATELET COUNT 166 x10e3/uL (140-360); RED CELL DISTRIBUTION WIDTH 15.2 % (11.7-14.4)
[2018-07-26 05:14] LABS: ANION GAP 15.3 mmol/L (8-16); CALCIUM 8.6 mg/dL (8.4-10.2); CREATININE, SERUM 3.23 mg/dL (0.72-1.25); MAGNESIUM 1.7 MG/DL (1.3-2.1); PHOSPHORUS 4.5 MG/DL (2.3-4.7); POTASSIUM 4.3 mmol/L (3.5-5.1)
[2018-07-26] MEDS: CEFEPIME HCL 1 GM VIAL IV SCH ×2 (06:06→18:47)
[2018-07-26] MEDS: HYDRALAZINE HCL 25 MG TAB PO SCH ×3 (06:07→21:08)
[2018-07-26] MEDS: AMOXICILLIN PO SCH (09:00)
[2018-07-26] MEDS: OMEPRAZOLE PO SCH (09:00)
[2018-07-26] MEDS: FUROSEMIDE 40 MG TAB PO SCH (09:00)
[2018-07-26] MEDS: GABAPENTIN 100 MG CAP PO SCH ×3 (09:00→21:08)
[2018-07-26] MEDS: NIFEDIPINE CR 30 MG TAB PO SCH ×2 (09:00→18:47)
[2018-07-26] MEDS: SODIUM BICARBONATE 650 MG TAB PO SCH ×3 (09:00→21:08)
[2018-07-26] MEDS: FOLIC ACID 1 MG TAB PO SCH (09:00)
[2018-07-26] MEDS: METOPROLOL TARTRATE 25 MG TAB PO SCH ×2 (09:00→18:46)
[2018-07-26] MEDS: CLARITHROMYCIN PO SCH (09:00)
[2018-07-26] MEDS: BUPROPION HCL 75 MG TAB PO SCH ×2 (09:00→18:47)
[2018-07-26] MEDS: DOXYCYCLINE HYCLATE TABLET 100 MG TAB PO SCH ×2 (11:15→23:15)
[2018-07-26] MEDS ORDERED: SODIUM CHLORIDE 0.9% 100 ML 0 ML ONE (15:11)
[2018-07-26] MEDS ORDERED: HEPARIN SOD (PORCINE) 5,000 UNIT/ML VIAL ONE (15:11)
[2018-07-26 15:21] LABS: ANION GAP 13.1 mmol/L (8-16); CALCIUM 9.1 mg/dL (8.4-10.2); CREATININE, SERUM 2.1 mg/dL (0.72-1.25); POTASSIUM 4.1 mmol/L (3.5-5.1)
--- NOTE | 2018-07-26 16:38 | Progress Note ---
DATE: July 26, 2018 RENAL PROGRESS NOTE SUBJECTIVE: Followed for end-stage renal disease, tolerating dialysis Sunday, Sunday, Sunday. Patient's dialysis treatment is done today without any problems. No nausea, no vomiting, or no shortness of breath. OBJECTIVE VITAL SIGNS: Have been noted and stable. LUNGS: Clear to auscultation bilaterally. CARDIOVASCULAR: S1 and S2. No rub. ABDOMEN: Soft and nontender. EXTREMITIES: No edema. LABS: Have been reviewed. Potassium is within range now, otherwise had been read per dialysis treatment sheet. IMPRESSION AND PLAN 1. End-stage renal disease. Continue dialysis Sunday, Sunday, Sunday. Patient is also to have an AV fistula placed later today. 2. Hypertension. Blood pressure is controlled. 3. Anemia of chronic disease, stable. 4. Hyperkalemia is resolved. Awaiting outpatient chair time and then patient can be discharged once AV fistula was placed and outpatient chair time arranged. Thank you once again. Job#: [id number] SHARONA
--- NOTE | 2018-07-26 16:40 | Discharge Summary ---
HISTORY OF PRESENT ILLNESS: Patient is a 58-year-old male who has a past medical history positive for hypertension, diabetes, hyperlipidemia, chronic renal insufficiency. Apparently patient was having hemodialysis catheter placement during the procedure. He had arrested. He was given calcium gluconate 50 IV insulin bicarbonate drip, calcium gluconate. He was hypercalcemic at that time. Dialysis catheter was successfully placed, and the patient was intubated and moved to ICU. Patient was extubated later on. He is doing much better. He is having an episode of hypoglycemia. We had to stop the glimepiride. Patient is going to go for an AV graft today by Dr. Sheppard, and if okay with Dr. Sheppard after that he can be transferred to [facility]. PHYSICAL EXAM: VITAL SIGNS: Blood pressure 145/98, temperature 98.5, heart rate 79 per minute. Respiratory rate 16 per minute. Oxygen saturation 90%. HEART: Regular rhythm. No murmur. No extra sounds. LUNGS: Clear bilaterally. ABDOMEN: Soft. EXTREMITIES: Show no evidence of cyanosis, edema or trauma. On the BMP, sodium 136, potassium 4.3, chloride 100. CO2 25. BUN 41. Creatinine 3.23. Glucose 79. On the CBC, white blood count 5.70, hemoglobin 9.3 hematocrit 29.3, platelet count 163,000. PT 14.0. INR 1.17. PTT 23.8. AST 18. ALT 23. Total bilirubin 0.5, alkaline phosphatase 62. FINAL IMPRESSION: 1. Status post cardiac arrest. 2. End-stage disease on dialysis, for AV graft today. 3. Diabetes mellitus type 2 with end-stage renal disease. 4. Hypertension with hypertensive nephropathy. 5. Anemia of chronic disease. On the medication regimen, he is going to continue Epogen 10,000 units Sunday, Sunday and Sunday on dialysis days. Metoprolol 25 mg twice a day. Furosemide 40 mg daily. Nifedipine 60 mg twice a day. Labetalol 5 mg IV q.6 hours as needed for hypertension. Doxycycline 100 mg IV twice a day. Gabapentin 200 mg 3 times a day. Cefepime 1 g IV twice a day. Bupropion 75 mg twice a day. Lorazepam 0.5 mg 3 times a day as needed. Tylenol 650 mg q.6 hours as needed. Continue Benadryl 25 mg at bedtime as needed. Heparin 5000 units as needed. Folic acid 1 mg daily. Sodium bicarbonate 350 mg 3 times a day. Hydralazine 50 mg q.8 hours for hypertension. Patient is going to be transferred to [facility] only if okay with Dr. Sheppard and other consultants today. Continue diabetic and renal diet. BETTY BALDWIN MD Job#: [id number] GH
[2018-07-26] MEDS ORDERED: HYDROMORPHONE 1MG/1ML INJ IV PRN (17:15)
[2018-07-26] MEDS ORDERED: FENTANYL CITRATE/PF 100MCG/2 ML INJ ONE ×2 (17:47→18:06)
--- NOTE | 2018-07-26 18:03 | Operative Report ---
DATE OF PROCEDURE: July 26, 2018 PREOPERATIVE DIAGNOSIS: End-stage renal disease. POSTOPERATIVE DIAGNOSIS: End-stage renal disease. OPERATIVE PROCEDURES: Left forearm primary arteriovenous fistula. SHOW JUMPING INSTRUCTOR: None. ANESTHESIA: General. INDICATIONS AND FINDINGS: The patient is a 58-year-old male with end-stage renal disease, needs access for long-term hemodialysis. At surgery patient was noted with adequate cephalic vein in the forearm for a fistula, a good pulse in radial artery. At the end of the procedure there was a palpable thrill over the fistula, a palpable pulse in the radial artery distal to the fistula. TECHNIQUE: After adequate general anesthesia, patient in the supine position, the left arm was prepped and draped in a sterile fashion with Slick solution. A transverse incision was made over the area of the cephalic vein and the radial artery. It was carried down through the subcutaneous tissue. Cephalic vein was dissected free proximally and distally. Side branches were ligated with hemoclips. More medially the incision was carried deeper, and the radial artery was dissected free and controlled with a vessel loop. There was an excellent pulse in the radial artery. The cephalic vein was divided as distally as possible, the distal portion ligated with hemoclips. A number 3 Adore catheter was passed through the vein and passed easily without resistance. The vein was then fashioned appropriately for a fistula. The patient was given 5000 units of intravenous heparin. The radial artery was clamped proximally and distally. Arteriotomy was made. Anastomosis was then made between the end of the vein and the side of the artery with a running suture of 7-0 Prolene. Once flow was allowed through the fistula, there was a palpable thrill over the fistula, a palpable pulse in the radial artery distal to the fistula. Hemostasis was seen to be adequate. The wound was then closed with 3-0 Vicryl in the subcutaneous tissue and thom for the skin. A sterile dressing was applied. The patient tolerated the procedure well. Estimated blood loss was 25 mL. There were no complications. All counts were correct. The patient was taken to the recovery room in satisfactory condition. Job#: [id number] EV cc:MD RODRIGUEZ BELLO MD
[2018-07-26] MEDS ORDERED: MIDAZOLAM HCL 2 MG/2 ML VIAL ONE (18:06)
[2018-07-26] MEDS: HYDROCODONE/APAP 7.5MG-325MG 1 EA TAB PO PRN ×2 (19:39→23:33)
== END 2018-07-26 23:30 | DRG 628 ==
LOC: ER 12:50 → CATH LAB 17:02 → ERHOLD 17:27 → ICU 17:29 → MED/SURG 07-21 12:41 → IMCU 07-23 14:38
PROVIDERS: ADMIT Internal Medicine; ATTEND Internal Medicine
PROC: 5A1935Z Respiratory Ventilation, Less than 24 Consecutive Hours (ICD-10-PCS; principal; 2018-07-19)
PROC: 0BH17EZ Insertion of Endotracheal Airway into Trachea, Via Natural or Artificial Opening (ICD-10-PCS; 2018-07-19)
PROC: 5A02216 Assistance with Cardiac Output using Other Pump, Continuous (ICD-10-PCS; 2018-07-19)
PROC: 5A1D70Z Performance of Urinary Filtration, Intermittent, Less than 6 Hours Per Day (ICD-10-PCS; 2018-07-19)
PROC: 0JH63XZ Insertion of Tunneled Vascular Access Device into Chest Subcutaneous Tissue and Fascia, Percutaneous Approach (ICD-10-PCS; 2018-07-19)
PROC: 02HV33Z Insertion of Infusion Device into Superior Vena Cava, Percutaneous Approach (ICD-10-PCS; 2018-07-19)
PROC: B548ZZA Ultrasonography of Superior Vena Cava, Guidance (ICD-10-PCS; 2018-07-19)
PROC: 30233N1 Transfusion of Nonautologous Red Blood Cells into Peripheral Vein, Percutaneous Approach (ICD-10-PCS; 2018-07-19)
PROC: 5A1D70Z Performance of Urinary Filtration, Intermittent, Less than 6 Hours Per Day (ICD-10-PCS; 2018-07-22)
PROC: 5A1D70Z Performance of Urinary Filtration, Intermittent, Less than 6 Hours Per Day (ICD-10-PCS; 2018-07-24)
PROC: 5A1D70Z Performance of Urinary Filtration, Intermittent, Less than 6 Hours Per Day (ICD-10-PCS; 2018-07-25)
PROC: 031C0ZF Bypass Left Radial Artery to Lower Arm Vein, Open Approach (ICD-10-PCS; 2018-07-26)
PROC: 5A1D70Z Performance of Urinary Filtration, Intermittent, Less than 6 Hours Per Day (ICD-10-PCS; 2018-07-26)
DX: E87.5 Hyperkalemia (principal); I46.9 Cardiac arrest, cause unspecified; N18.6 End stage renal disease; J96.00 Acute respiratory failure, unspecified whether with hypoxia or hypercapnia; I12.0 Hypertensive chronic kidney disease with stage 5 chronic kidney disease or end stage renal disease; N17.9 Acute kidney failure, unspecified; E87.2 Acidosis; Z99.2 Dependence on renal dialysis; D63.1 Anemia in chronic kidney disease; E78.5 Hyperlipidemia, unspecified; F43.23 Adjustment disorder with mixed anxiety and depressed mood; F10.10 Alcohol abuse, uncomplicated; E11.22 Type 2 diabetes mellitus with diabetic chronic kidney disease; E11.42 Type 2 diabetes mellitus with diabetic polyneuropathy; E87.1 Hypo-osmolality and hyponatremia; E11.649 Type 2 diabetes mellitus with hypoglycemia without coma; R26.81 Unsteadiness on feet; E83.42 Hypomagnesemia
CPT/HCPCS: 36415; 36565; 36600; 71045; 74470; 77001; 80048; 80053; 81001; 82306; 82550; 82553; 82728; 82805; 82948; 83540; 83735; 83880; 83970; 84100; 84443; 84466; 84484; 85025; 85610; 85730; 86704; 86706; 86850; 86900; 86920; 87040; 87086; 87186; 87340; 90962; 93005; 93970; 94002; 99285; C1769; J0692; J1644; J1940; J2001; J2150; J2250; J2405; J3370; J7030; J7040; J7050; J7070; J7799; P9016; Q4081